=== PATIENT | male | born 1970 | race African-American/Black ===

== ENCOUNTER 2024-09-15 07:30 | Emergency (ER) | payer OTHER ==
[2024-09-15 07:36] VITALS: TEMP 98.2
--- NOTE | 2024-09-15 08:04 | ED ---
Arrhythmia/Palpitations HPI - General Chief Complaint: Arrhythmia/Palpitations Stated Complaint: high BP/lightheaded Time Seen by Provider: 09/15/24 07:32 Source: patient, RN notes reviewed Mode of arrival: ambulatory Limitations: no limitations - History of Present Illness Initial Comments: 53 year old male presents to the ED with chief complaint of light headedness and palpitations. He states that this morning he woke up and felt that his heart was racing and felt light headed. He reports a history of hypertension for which he is not taking any medication, although they are prescribed to him. He states that he is waiting to establish care with PCP. He does report shortness of breath, palpitations, and slight nausea; however, he denies chest pain, syncope, back pain, and headache. - Related Data Previous Rx's Medication Instructions Recorded Losartan [Cozaar] 50 mg PO DAILY #30 tab 09/15/24 Allergies Allergy/AdvReac Type Severity Reaction Status Date / Time No Known Allergies Allergy Verified 09/15/24 07:31 Review of Systems ROS Statement: Those systems with pertinent positive or pertinent negative responses have been documented in the HPI. ROS Other: All systems not noted in ROS Statement are negative. Past Medical History Past Medical History: Hypertension History of Any Multi-Drug Resistant Organisms: None Reported Past Surgical History: No Surgical Hx Reported Past Psychological History: No Psychological Hx Reported Smoking Status: Never smoker Past Alcohol Use History: None Reported Past Drug Use History: None Reported General Exam Limitations: no limitations General appearance: alert, in no apparent distress Head exam: Present: atraumatic, normocephalic, normal inspection Eye exam: Present: normal appearance, PERRL, EOMI. Absent: scleral icterus, conjunctival injection, periorbital swelling ENT exam: Present: normal exam, mucous membranes moist Neck exam: Present: normal inspection. Absent: tenderness, meningismus, lymphadenopathy Respiratory exam: Present: normal lung sounds bilaterally. Absent: respiratory distress, wheezes, rales, rhonchi, stridor Cardiovascular Exam: Present: regular rate, normal rhythm, diastolic murmur. Absent: systolic murmur, rubs, gallop, clicks GI/Abdominal exam: Present: soft, normal bowel sounds. Absent: distended, tenderness, guarding, rebound, rigid Extremities exam: Present: normal inspection, full ROM, normal capillary refill. Absent: tenderness, pedal edema, joint swelling, calf tenderness Back exam: Present: normal inspection Neurological exam: Present: alert, oriented X3, CN II-XII intact Psychiatric exam: Present: normal affect, normal mood Skin exam: Present: warm, dry, intact, normal color. Absent: rash Course Vital Signs 09/15/24 09/15/24 09/15/24 07:32 08:40 09:00 Temperature 98.2 F Pulse Rate 91 85 82 Respiratory 20 18 18 Rate Blood Pressure 216/136 186/124 187/126 O2 Sat by Pulse 98 98 99 Oximetry 09/15/24 09/15/24 09/15/24 09:14 09:29 09:49 Temperature Pulse Rate 94 96 92 Respiratory 18 18 18 Rate Blood Pressure 175/112 173/113 169/104 O2 Sat by Pulse 99 97 97 Oximetry 09/15/24 09/15/24 10:12 10:57 Temperature Pulse Rate 95 96 Respiratory 18 20 Rate Blood Pressure 145/80 158/84 O2 Sat by Pulse 96 99 Oximetry EKG Findings - EKG Comments: EKG Findings:: EKG performed at 7: 54 sinus rhythm rate of 88 ND 158 QRS 102 QT/QTc 350/[address] elevation in V1 V2 no reciprocal changes, Q wave noted in 2 3 - EKG Results: EKG: interpreted by DWAYNE Medical Decision Making - Medical Decision Making Was pt. sent in by a medical professional or institution ([facility], LATHE TENDER, urgent care, hospital, or senior living...) When possible be specific @ -No Did you speak to anyone other than the patient for history (EMS, parent, family, police, friend...)? What history was obtained from this source @ -No Did you review nursing and triage notes (agree or disagree)? Why? @ -I reviewed and agree with nursing and triage notes Were old charts reviewed (outside hosp., previous admission, EMS record, old EKG, old radiological studies, urgent care reports/EKG's, senior living records)? Report findings @ -No old charts were reviewed Differential Diagnosis (chest pain, altered mental status, abdominal pain women, abdominal pain men, vaginal bleeding, weakness, fever, dyspnea, syncope, headache, dizziness, GI bleed, back pain, seizure, CVA, palpatations, mental health, musculoskeletal)? @ -Differential Palpitations Ventricular arrhythmias, atrial arrhythmias, myocardial infarction, anemia, thyrotoxicosis, electrolyte imbalance, hypokalemia, pulmonary embolism, pulmonary disease, drugs, alcohol, anxiety, stress.... This is not meant to be an all-inclusive list. EKG interpreted by me (3pts min.). @ -As above X-rays interpreted by me (1pt min.). @ -Chest x-ray shows no acute cardiopulmonary process CT interpreted by me (1pt min.). @ -None done U/S interpreted by me (1pt. min.). @ -None done What testing was considered but not performed or refused? (CT, X-rays, U/S, labs)? Why? @ -None What meds were considered but not given or refused? Why? @ -None Did you discuss the management of the patient with other professionals (professionals i.e. , PA, LATHE TENDER, lab, RT, psych nurse, child welfare social worker, personal development educator, teacher, chief human resources officer, telephonic case manager)? Give summary @ -No Was smoking cessation discussed for >3mins.? @ -No Was critical care preformed (if so, how long)? @ -No Were there social determinants of health that impacted care today? How? (Homelessness, low income, unemployed, alcoholism, drug addiction, transportation, low edu. Level, literacy, decrease access to med. care, alf, rehab)? @ -No Was there de-escalation of care discussed even if they declined (Discuss DNR or withdrawal of care, Hospice)? DNR status @ -No What co-morbidities impacted this encounter? (DM, HTN, Smoking, COPD, CAD, Cancer, CVA, ARF, Chemo, Hep., AIDS, mental health diagnosis, sleep apnea, morbid obesity)? @ -Hypertension Was patient admitted / discharged? Hospital course, mention meds given and route, prescriptions, significant lab abnormalities, going to OR and other pertinent info. @ -Charge patient's blood pressure has improved. Patient was written his losartan that he was on in the past. Patient was given multiple primary care physicians to attempt follow-up and return transfer discussed. Patient is currently asymptomatic Undiagnosed new problem with uncertain prognosis? @ -No Drug Therapy requiring intensive monitoring for toxicity (Heparin, Nitro, I nsulin, Cardizem)? @ -No Were any procedures done? @ -No Diagnosis/symptom? @ -Hypertension Acute, or Chronic, or Acute on Chronic? @ -Acute Uncomplicated (without systemic symptoms) or Complicated (systemic symptoms)? @ -Uncomplicated Side effects of treatment? @ -No Exacerbation, Progression, or Severe Exacerbation? @ -No Poses a threat to life or bodily function? How? (Chest pain, [place], [place], pneumonia, PE, COPD, DKA, ARF, appy, cholecystitis, CVA, Diverticulitis, Homicidal, Suicidal, threat to staff... and all critical care pts) @ -No - Lab Data Result diagrams: 09/15/24 08:03 09/15/24 08:03 Lab Results 09/15/24 09/15/24 09/15/24 Range/Units 08:03 08:03 08:03 WBC 9.3 (3.8-10.6) k/uL RBC 5.34 (4.30-5.90) m/uL Hgb 15.0 (13.0-17.5) gm/dL Hct 46.4 (39.0-53.0) % MCV 86.8 (80.0-100.0) fL MCH 28.1 (25.0-35.0) pg MCHC 32.4 (31.0-37.0) g/dL RDW 13.2 (11.5-15.5) % Plt Count 279 (150-450) k/uL MPV 7.7 Neutrophils % 75 % Lymphocytes % 17 % Monocytes % 6 % Eosinophils % 1 % Basophils % 0 % Neutrophils # 6.9 (1.3-7.7) k/uL Lymphocytes # 1.6 (1.0-4.8) k/uL Monocytes # 0.5 (0-1.0) k/uL Eosinophils # 0.1 (0-0.7) k/uL Basophils # 0.0 (0-0.2) k/uL PT 10.2 (10.0-12.5) sec INR 0.9 (<1.2) APTT 24.7 (22.0-30.0) sec D-Dimer 0.22 (<0.60) mg/L FEU Sodium 137 (137-145) mmol/L Potassium 4.1 (3.5-5.1) mmol/L Chloride 110 H (98-107) mmol/L Carbon Dioxide 21 L (22-30) mmol/L Anion Gap 6 mmol/L BUN 17 (9-20) mg/dL Creatinine 1.30 H (0.66-1.25) mg/dL Est GFR (CKD-EPI)AfAm 73 (>60 ml/min/1.73 sqM) Est GFR (CKD-EPI)NonAf 63 (>60 ml/min/1.73 sqM) Glucose 116 H (74-99) mg/dL Calcium 9.3 (8.4-10.2) mg/dL Magnesium 1.9 (1.6-2.3) mg/dL Total Bilirubin 0.8 (0.2-1.3) mg/dL AST 47 (17-59) U/L ALT 43 (4-49) U/L Alkaline Phosphatase 96 (38-126) U/L Troponin I (0.000-0.034) ng/mL Total Protein 8.0 (6.3-8.2) g/dL Albumin 4.4 (3.5-5.0) g/dL 09/15/24 Range/Units 08:03 WBC (3.8-10.6) k/uL RBC (4.30-5.90) m/uL Hgb (13.0-17.5) gm/dL Hct (39.0-53.0) % MCV (80.0-100.0) fL MCH (25.0-35.0) pg MCHC (31.0-37.0) g/dL RDW (11.5-15.5) % Plt Count (150-450) k/uL MPV Neutrophils % % Lymphocytes % % Monocytes % % Eosinophils % % Basophils % % Neutrophils # (1.3-7.7) k/uL Lymphocytes # (1.0-4.8) k/uL Monocytes # (0-1.0) k/uL Eosinophils # (0-0.7) k/uL Basophils # (0-0.2) k/uL PT (10.0-12.5) sec INR (<1.2) APTT (22.0-30.0) sec D-Dimer (<0.60) mg/L FEU Sodium (137-145) mmol/L Potassium (3.5-5.1) mmol/L Chloride (98-107) mmol/L Carbon Dioxide (22-30) mmol/L Anion Gap mmol/L BUN (9-20) mg/dL Creatinine (0.66-1.25) mg/dL Est GFR (CKD-EPI)AfAm (>60 ml/min/1.73 sqM) Est GFR (CKD-EPI)NonAf (>60 ml/min/1.73 sqM) Glucose (74-99) mg/dL Calcium (8.4-10.2) mg/dL Magnesium (1.6-2.3) mg/dL Total Bilirubin (0.2-1.3) mg/dL AST (17-59) U/L ALT (4-49) U/L Alkaline Phosphatase (38-126) U/L Troponin I <0.012 (0.000-0.034) ng/mL Total Protein (6.3-8.2) g/dL Albumin (3.5-5.0) g/dL Disposition Clinical Impression: Hypertension Disposition: HOME SELF-CARE Condition: Stable Instructions (If sedation given, give patient instructions): Hypertension (ED) Additional Instructions: Please return to the Emergency Department if symptoms worsen or any other concerns. Prescriptions: Losartan [Cozaar] 50 mg PO DAILY #30 tab Is patient prescribed a controlled substance at d/c from ED?: No Referrals: [facility] [NON-STAFF] - 1-2 days [facility] [NON-STAFF] - 1-2 days None,Stated [Primary Care Provider] - 1-2 days Forms: Area PCPs
[2024-09-15] MEDS: LABETALOL 5 MG/ML VIAL MDV IVP STA (08:13)
[2024-09-15 08:18] LABS: Basophils % (A) 0 %; Eosinophils # (A) 0.1 k/uL (0-0.7); Eosinophils % (A) 1 %; HCT 46.4 % (39.0-53.0); Lymphocytes # (A) 1.6 k/uL (1.0-4.8); Lymphocytes % (A) 17 %; MCH 28.1 pg (25.0-35.0); MCHC 32.4 g/dL (31.0-37.0); MCV 86.8 fL (80.0-100.0); Mean Platelet Volume 7.7; Monocytes # (A) 0.5 k/uL (0-1.0); Monocytes % (A) 6 %; Neutrophils # (A) 6.9 k/uL (1.3-7.7); Neutrophils % (A) 75 %; Platelet Count 279 k/uL (150-450); RBC 5.34 m/uL (4.30-5.90); RDW 13.2 % (11.5-15.5); WBC 9.3 k/uL (3.8-10.6)
[2024-09-15 08:22] LABS: INR 0.9 (<1.2); Partial Thromboplastin Time 24.7 sec (22.0-30.0); Prothrombin Time 10.2 sec (10.0-12.5)
[2024-09-15 08:24] LABS: ALT 43 U/L (4-49); African American GFR (CKD) 73 (>60 ml/min/1.73 sqM); Albumin 4.4 g/dL (3.5-5.0); Anion Gap 6 mmol/L; Blood Urea Nitrogen 17 mg/dL (9-20); Calcium 9.3 mg/dL (8.4-10.2); Carbon Dioxide 21 mmol/L (22-30); Chloride 110 mmol/L (98-107); Glucose 116 mg/dL (74-99); Non-African American GFR(CKD) 63 (>60 ml/min/1.73 sqM); Sodium 137 mmol/L (137-145); Total Bilirubin 0.8 mg/dL (0.2-1.3)
[2024-09-15 08:31] LABS: AST 47 U/L (17-59); Alkaline Phosphatase 96 U/L (38-126); Magnesium 1.9 mg/dL (1.6-2.3); Potassium 4.1 mmol/L (3.5-5.1)
--- NOTE | 2024-09-15 08:45 | XR ---
EXAMINATION TYPE: XR chest 2V DATE OF EXAM: 09/15/2024 8:31 AM COMPARISON: None. CLINICAL INDICATION: Male, 53 years old with history of dysrhythmia, , TECHNIQUE: PA and lateral views FINDINGS: The cardiomediastinal silhouette, aorta, and pulmonary vasculature are within normal limits. Lungs an d pleural spaces are clear. IMPRESSION: No acute cardiopulmonary process. [facility], , 09/15/2024 8:43 AM
[2024-09-15] MEDS: hydrALAZINE HCL 20 MG/ML 1 ML VIAL IVP STA ×3 (09:02→09:32)
[2024-09-15 11:00] VITALS: BP 158/84; PULSE 96; RESP 20
== END 2024-09-15 11:10 | disposition home or self-care (01) ==
LOC: EC 07:30
DX: I10 Essential (primary) hypertension (principal)
CPT/HCPCS: 36415; 71046; 80053; 83735; 84484; 85025; 85379; 85610; 85730; 93005; 96374; 96375; 96376; 99285

== ENCOUNTER 2025-02-08 17:06 | Observation (INO) | payer OTHER ==
--- NOTE | 2025-02-08 17:23 | ED ---
Recheck HPI - General Chief Complaint: Recheck/Abnormal Lab/Rx Stated Complaint: hypertension Time Seen by Provider: 02/08/25 17:23 Source: patient, EMS Mode of arrival: EMS - History of Present Illness Initial Comments: 54-year-old male presented the ER via EMS for evaluation of hypertension. Patient states he is typically prescribed losartan 50 mg daily but has been out of his medication for the past 2 almost 3 weeks. He does not currently have a primary care physician as he " cannot afford to miss work". He reports throughout the day today he has felt "off" and mildly dizzy. He states he typically feels like this when his blood pressure is elevated. Patient states this was intermittent throughout the day and when he got off work he decided to come to the emergency department for evaluation as he felt his blood pressure was elevated. He states while driving to the hospital he started to have blurry vision which prompted him to sample puller on the side of the road and called EMS as he did not want something bad to happen while driving. He denies any current dizziness, lightheadedness, chest pain, shortness of breath, peripheral edema or other complaints. No other past medical history - Related Data Home Medications Medication Instructions Recorded Confirmed Aspirin EC [Ecotrin Low Dose] 81 mg PO DAILY 02/08/25 02/08/25 Allergies Allergy/AdvReac Type Severity Reaction Status Date / Time No Known Allergies Allergy Verified 02/08/25 17:12 Review of Systems ROS Statement: Those systems with pertinent positive or pertinent negative responses have been documented in the HPI. ROS Other: All systems not noted in ROS Statement are negative. Past Medical History Past Medical History: Hypertension History of Any Multi-Drug Resistant Organisms: None Reported Past Surgical History: No Surgical Hx Reported Past Psychological History: No Psychological Hx Reported Smoking Status: Never smoker Past Alcohol Use History: None Reported Past Drug Use History: None Reported General Exam Limitations: no limitations General appearance: alert, in no apparent distress Respiratory exam: Present: normal lung sounds bilaterally. Absent: respiratory distress, wheezes, rales, rhonchi, stridor Cardiovascular Exam: Present: regular rate, normal rhythm, normal heart sounds. Absent: systolic murmur, diastolic murmur, rubs, gallop, clicks Extremities exam: Present: normal inspection, full ROM, normal capillary refill. Absent: tenderness, pedal edema, joint swelling, calf tenderness Neurological exam: Present: alert, oriented X3, CN II-XII intact Skin exam: Present: warm, dry, intact, normal color. Absent: rash Course Vital Signs 02/08/25 02/08/25 02/08/25 17:10 19:35 20:38 Temperature 98.2 F Pulse Rate 96 85 91 Respiratory 20 20 18 Rate Blood Pressure 186/111 201/122 176/113 O2 Sat by Pulse 99 100 99 Oximetry 02/08/25 22:56 Temperature Pulse Rate 90 Respiratory 17 Rate Blood Pressure 155/92 O2 Sat by Pulse 98 Oximetry - Reevaluation(s) Reevaluation #1: 02/09/25 00:48 Case discussed with [facility] physician, Dr. Chaparro, for admission. Medical Decision Making - Medical Decision Making Was pt. sent in by a medical professional or institution (, PA, GANG HEMSTITCHING MACHINE OPERATOR, urgent care, hospital, or residential...) When possible be specific @ -No Did you speak to anyone other than the patient for history (EMS, parent, family, police, friend...)? What history was obtained from this source @ -No Did you review nursing and triage notes (agree or disagree)? Why? @ -I reviewed and agree with nursing and triage notes Were old charts reviewed (outside hosp., previous admission, EMS record, old EKG, old radiological studies, urgent care reports/EKG's, residential records)? Report findings @ -Yes, I reviewed ER visit from [id number]. Patient seen here for evaluation of hypertension patient discharged home with a prescription of losartan. Differential Diagnosis (chest pain, altered mental status, abdominal pain women, abdominal pain men, vaginal bleeding, weakness, fever, dyspnea, syncope, headache, dizziness, GI bleed, back pain, seizure, CVA, palpatations, mental health, musculoskeletal)? @ -Hypertension, hypertensive urgency, hypertensive emergency, [place], CKD... This list is not meant to be all-inclusive EKG interpreted by me (3pts min.). @ -As above X-rays interpreted by me (1pt min.). @ -CXR interpreted remain negative for acute cardiopulmonary process. CT interpreted by me (1pt min.). @ -None done U/S interpreted by me (1pt. min.). @ -None done What testing was considered but not performed or refused? (CT, X-rays, U/S, labs)? Why? @ -None What meds were considered but not given or refused? Why? @ -None Did you discuss the management of the patient with other professionals (professionals i.e. , PA, GANG HEMSTITCHING MACHINE OPERATOR, lab, RT, psych nurse, medical social consultant, neonatal specialist, teacher, assurance officer, behavioral health case manager)? Give summary @ -Yes, case discussed with [facility] physician, Dr. Chaparro, for admission. Was smoking cessation discussed for >3mins.? @ -No Was critical care preformed (if so, how long)? @ -No Were there social determinants of health that impacted care today? How? (Homelessness, low income, unemployed, alcoholism, drug addiction, transportation, low edu. Level, literacy, decrease access to med. care, senior care, rehab)? @ -Patient does not have primary care physician Was there de-escalation of care discussed even if they declined (Discuss DNR or withdrawal of care, Hospice)? DNR status @ -No What co-morbidities impacted this encounter? (DM, HTN, Smoking, COPD, CAD, Cancer, CVA, ARF, Chemo, Hep., AIDS, mental health diagnosis, sleep apnea, morbid obesity)? @ -HTN Was patient admitted / discharged? Hospital course, mention meds given and route, prescriptions, significant lab abnormalities, going to OR and other pertinent info. @ -Admitted. 54-year-old male presented to the ER via EMS for evaluation of elevated blood pressure. Patient reports a history of this and has not been on prescribed losartan in approximately 2 to 3 weeks as he does not have a primary care physician.Upon my evaluation, patient is hypertensive 186/111. Vital signs otherwise within acceptable limits. Patient denying any current complaints. Cardiac workup will be obtained, patient is agreeable. Troponin undetectable. There is a leukocytosis of 12.8 with a left shift. EKG showing a sinus rhythm no acute evidence of infarct or ischemia. Patient given IV labetalol and hydralazine and remained hypertensive at 176/113. Given patient does not have primary care physician established and is unable to follow-up closely while remaining hypertensive after IV medications, admission was considered and discussed with [facility] physician, Dr. Chaparro, for further evaluation of uncontrolled hypertension. Upon reevaluation, patient resting comfortably on stretcher no signs of acute distress. Results discussed with patient, all questions answered. Patient is agreeable for admission. Patient admitted in stable condition for further evaluation and treatment. Case discussed with ED attending, Dr. Macias. Undiagnosed new problem with uncertain prognosis? @ -No Drug Therapy requiring intensive monitoring for toxicity (Heparin, Nitro, Insulin, Cardizem)? @ -No Were any procedures done? @ -No Diagnosis/symptom? @ -Uncontrolled hypertension Acute, or Chronic, or Acute on Chronic? @ -Acute Uncomplicated (without systemic symptoms) or Complicated (systemic symptoms)? @ -Complicated Side effects of treatment? @ -No Exacerbation, Progression, or Severe Exacerbation? @ -No Poses a threat to life or bodily function? How? (Chest pain, [place], [place], pneumonia, PE, COPD, DKA, ARF, appy, cholecystitis, CVA, Diverticulitis, Homicidal, Suicidal, threat to staff... and all critical care pts) @ -Possibly - Lab Data Result diagrams: 02/08/25 19:33 02/08/25 17:56 Lab Results 02/08/25 02/08/25 02/08/25 Range/Units 17:56 17:56 17:56 WBC (3.8-10.6) k/uL RBC (4.30-5.90) m/uL Hgb (13.0-17.5) gm/dL Hct (39.0-53.0) % MCV (80.0-100.0) fL MCH (25.0-35.0) pg MCHC (31.0-37.0) g/dL RDW (11.5-15.5) % Plt Count (150-450) k/uL MPV Neutrophils % % Lymphocytes % % Monocytes % % Eosinophils % % Basophils % % Neutrophils # (1.3-7.7) k/uL Lymphocytes # (1.0-4.8) k/uL Monocytes # (0-1.0) k/uL Eosinophils # (0-0.7) k/uL Basophils # (0-0.2) k/uL PT 10.8 (10.0-12.5) sec INR 1.0 (<1.2) APTT 22.7 (22.0-30.0) sec Sodium 138 (137-145) mmol/L Potassium 3.9 (3.5-5.1) mmol/L Chloride 106 (98-107) mmol/L Carbon Dioxide 25 (22-30) mmol/L Anion Gap 7 mmol/L BUN 12 (9-20) mg/dL Creatinine 1.34 H (0.66-1.25) mg/dL Est GFR (CKD-EPI)AfAm 70 (>60 ml/min/1.73 sqM) Est GFR (CKD-EPI)NonAf 60 (>60 ml/min/1.73 sqM) Glucose 106 H (74-99) mg/dL Calcium 8.9 (8.4-10.2) mg/dL Magnesium 2.0 (1.6-2.3) mg/dL Total Bilirubin 0.8 (0.2-1.3) mg/dL AST 28 (17-59) U/L ALT 30 (4-49) U/L Alkaline Phosphatase 91 (38-126) U/L Troponin I <0.012 (0.000-0.034) ng/mL Total Protein 7.4 (6.3-8.2) g/dL Albumin 4.0 (3.5-5.0) g/dL 02/08/25 Range/Units 19:33 WBC 12.8 H (3.8-10.6) k/uL RBC 5.35 (4.30-5.90) m/uL Hgb 15.0 (13.0-17.5) gm/dL Hct 46.1 (39.0-53.0) % MCV 86.3 (80.0-100.0) fL MCH 28.0 (25.0-35.0) pg MCHC 32.5 (31.0-37.0) g/dL RDW 13.3 (11.5-15.5) % Plt Count 287 (150-450) k/uL MPV 7.9 Neutrophils % 83 % Lymphocytes % 12 % Monocytes % 3 % Eosinophils % 1 % Basophils % 0 % Neutrophils # 10.6 H (1.3-7.7) k/uL Lymphocytes # 1.6 (1.0-4.8) k/uL Monocytes # 0.4 (0-1.0) k/uL Eosinophils # 0.2 (0-0.7) k/uL Basophils # 0.0 (0-0.2) k/uL PT (10.0-12.5) sec INR (<1.2) APTT (22.0-30.0) sec Sodium (137-145) mmol/L Potassium (3.5-5.1) mmol/L Chloride (98-107) mmol/L Carbon Dioxide (22-30) mmol/L Anion Gap mmol/L BUN (9-20) mg/dL Creatinine (0.66-1.25) mg/dL Est GFR (CKD-EPI)AfAm (>60 ml/min/1.73 sqM) Est GFR (CKD-EPI)NonAf (>60 ml/min/1.73 sqM) Glucose (74-99) mg/dL Calcium (8.4-10.2) mg/dL Magnesium (1.6-2.3) mg/dL Total Bilirubin (0.2-1.3) mg/dL AST (17-59) U/L ALT (4-49) U/L Alkaline Phosphatase (38-126) U/L Troponin I (0.000-0.034) ng/mL Total Protein (6.3-8.2) g/dL Albumin (3.5-5.0) g/dL - EKG Data -: EKG Interpreted by Me EKG Comments: EKG taken at 18: 53 showing a sinus rhythm. No ST segment elevations or depressions. No T wave inversions. Ventricular rate 77, WI interval 140, QRS duration 97, QT/QTc 359/390. - Radiology Data Radiology results: report reviewed, image reviewed Disposition Clinical Impression: Uncontrolled hypertension Disposition: ADMITTED IP TO THIS [facility] Condition: Stable Time of Disposition: 00:44
[2025-02-08] MEDS: LABETALOL 5 MG/ML VIAL MDV IVP STA ×2 (17:55→18:16)
[2025-02-08 18:11] LABS: Partial Thromboplastin Time 22.7 sec (22.0-30.0); Prothrombin Time 10.8 sec (10.0-12.5)
[2025-02-08 18:14] LABS: ALT 30 U/L (4-49); AST 28 U/L (17-59); African American GFR (CKD) 70 (>60 ml/min/1.73 sqM); Alkaline Phosphatase 91 U/L (38-126); Anion Gap 7 mmol/L; Blood Urea Nitrogen 12 mg/dL (9-20); Calcium 8.9 mg/dL (8.4-10.2); Carbon Dioxide 25 mmol/L (22-30); Chloride 106 mmol/L (98-107); Glucose 106 mg/dL (74-99); Non-African American GFR(CKD) 60 (>60 ml/min/1.73 sqM); Potassium 3.9 mmol/L (3.5-5.1); Sodium 138 mmol/L (137-145); Total Bilirubin 0.8 mg/dL (0.2-1.3); Total Protein 7.4 g/dL (6.3-8.2)
--- NOTE | 2025-02-08 18:21 | XR ---
EXAMINATION TYPE: XR chest 2V DATE OF EXAM: 02/08/2025 CLINICAL INDICATION: Male, 54 years old with history of Chest Pain, TECHNIQUE: Frontal and lateral views of the chest are obtained. COMPARISON: Chest x-ray September 15, 2024 FINDINGS: There is no focal air space opacity, pleural effusion, or pneumothorax seen. The cardiac silhouette size is stable and within normal limits. The osseous structures are intact. IMPRESSION: No acute process. [facility], , 02/08/2025 6:19 PM
[2025-02-08 19:53] LABS: Basophils % (A) 0 %; Eosinophils # (A) 0.2 k/uL (0-0.7); Eosinophils % (A) 1 %; HCT 46.1 % (39.0-53.0); Lymphocytes # (A) 1.6 k/uL (1.0-4.8); Lymphocytes % (A) 12 %; MCHC 32.5 g/dL (31.0-37.0); MCV 86.3 fL (80.0-100.0); Mean Platelet Volume 7.9; Monocytes # (A) 0.4 k/uL (0-1.0); Monocytes % (A) 3 %; Neutrophils # (A) 10.6 k/uL (1.3-7.7); Neutrophils % (A) 83 %; Platelet Count 287 k/uL (150-450); RBC 5.35 m/uL (4.30-5.90); RDW 13.3 % (11.5-15.5); WBC 12.8 k/uL (3.8-10.6)
[2025-02-08] MEDS: hydrALAZINE HCL 20 MG/ML 1 ML VIAL IVP STA (20:07)
[2025-02-08] MEDS ORDERED: NALOXONE 0.4 MG/ML 1 ML VIAL IV PRN (23:18)
--- NOTE | 2025-02-09 02:42 | P.HPIM ---
History of Present Illness H&P Date: 02/09/25 Patient is a 54-year-old male with a PMH of hypertension who presents to the emergency room for elevated blood pressures. Patient reports that he was previously seeing a PCP and was prescribed losartan 50 mg p.o. daily but had ran out of his medications and thereby had not taken them for several weeks. Patient notes that he has been having trouble finding a PCP that would accept his insurance. He reports feeling "somewhat off" at home throughout the day today and then started feeling dizzy which are his usual symptoms of high blood pressure. At time of interview, he reports feeling at his baseline and had no additional complaints. Denied experiencing headaches, chest discomfort, shortne ss of breath, fever, chills, cough, nausea, vomiting, abdominal pain, diarrhea. In the emergency room, chest x-ray was unremarkable with EKG showing sinus rhythm at [address]/T wave changes noted as reviewed by me. Laboratory evaluation did reveal WBC count of 12.8 with BUN 12 and creatinine 1.34 with glucose 106 and troponin less than 0.012. Blood pressure upon arrival in the emergency room was 186/111 and subsequently 201/122. ED documentation reviewed and case discussed with ED provider. Review of systems: Pertinent positives and negatives as discussed in HPI, a complete review of systems was performed and all other systems are negative. Physical examination: Vital signs reviewed General: non toxic, no distress, appears at stated age, obese Derm: no unusual rashes/lesions, warm Head: atraumatic, normocephalic, symmetric Eyes: EOMI, no lid lag, anicteric sclera, pupils equal round reactive to light ENT: Nose and ears atraumatic Neck: No cervical lymphadenopathy, trachea midline, supple Mouth: no lip lesion, mucus membranes moist Cardiovascular: S1S2 reg, no murmur, positive dorsalis pedis pulse bilateral, no edema Lungs: CTA bilateral, no rhonchi, no rales, no accessory muscle use Abdominal: soft, nontender to palpation, no guarding Ext: muscle strength 5 out of 5 in all 4 extremities grossly, no gross muscle atrophy, no contractures, Neuro: CN II-XI grossly intact, no gross focal neuro deficits Psych: Alert, oriented, appropriate affect Assessment: Accelerated hypertension Leukocytosis Elevated creatinine, acute versus chronic kidney injury Imaging: In the emergency room, chest x-ray was unremarkable with EKG showing sinus rhythm at [address]/T wave changes noted as reviewed by me. Data Review: Laboratory evaluation did reveal WBC count of 12.8 with BUN 12 and creatinine 1.34 with glucose 106 and troponin less than 0.012. Blood pressure upon arrival in the emergency room was 186/111 and subsequently 201/122. Plan: Initiate hydrochlorothiazide 50 mg p.o. daily and Norvasc 10 mg p.o. daily Continue with cardiac monitoring DVT prophylaxis: Lovenox subcu The patient is admitted with an anticipated [] than 2 midnight stay for evaluation of [] CODE STATUS: Full Code Discussed with: Patient Anticipated discharge place: Home Past Medical History Past Medical History: Hypertension History of Any Multi-Drug Resistant Organisms: None Reported Past Surgical History: No Surgical Hx Reported Past Psychological History: No Psychological Hx Reported Smoking Status: Never smoker Past Alcohol Use History: None Reported Past Drug Use History: None Reported Medications and Allergies Home Medications Medication Instructions Recorded Confirmed Type Aspirin EC [Ecotrin Low Dose] 81 mg PO DAILY 02/08/25 02/08/25 History Allergies Allergy/AdvReac Type Severity Reaction Status Date / Time No Known Allergies Allergy Verified 02/08/25 17:12 Physical Exam Vitals: Vital Signs Temp Pulse Resp BP Pulse Ox 02/09/25 01:03 104 H 16 151/96 99 02/08/25 22:56 90 17 155/92 98 02/08/25 20:38 91 18 176/113 99 02/08/25 19:35 85 20 201/122 100 02/08/25 17:10 98.2 F 96 20 186/111 99 Intake and Output 02/08/25 02/08/25 02/09/25 14:59 22:59 06:59 Other: Weight 106.594 kg Results CBC & Chem 7: 02/08/25 19:33 02/08/25 17:56 Labs: Abnormal Lab Results - Last 24 Hours (Table) 02/08/25 02/08/25 Range/Units 17:56 19:33 WBC 12.8 H (3.8-10.6) k/uL Neutrophils # 10.6 H (1.3-7.7) k/uL Creatinine 1.34 H (0.66-1.25) mg/dL Glucose 106 H (74-99) mg/dL
[2025-02-09] MEDS: amLODIPine 10 MG TAB PO STA (02:56)
[2025-02-09] MEDS: amLODIPine 10 MG TAB PO SCH (06:49)
[2025-02-09] MEDS: ASPIRIN 81 MG PO SCH (08:45)
[2025-02-09] MEDS: LOSARTAN 25 MG TAB PO SCH (08:45)
[2025-02-09] MEDS: ENOXAPARIN 40 MG/0.4 ML SYRINGE SQ SCH (08:46)
[2025-02-09] MEDS ORDERED: hydrALAZINE HCL 20 MG/ML 1 ML VIAL IM PRN (12:33)
--- NOTE | 2025-02-09 12:45 | P.PN ---
Subjective Progress Note Date: 02/09/25 Hospital Course: A 54-year-old male with PMH of hypertension who presented to the ER with allie taylor blood pressure. atient reports that he was previously seeing a PCP and was prescribed losartan 5 0 mg p.o. daily but had ran out of his medications and thereby had not taken them for several weeks. Patient notes that he has been having trouble finding a PCP that would accept his insurance. He reports feeling "somewhat off" at home throughout the day today and then started feeling dizzy which are his usual symptoms of high blood pressure. At time of interview, he reports feeling at his baseline and had no additional complaints. Denied experiencing headaches, chest discomfort, shortness of breath, fever, chills, cough, nausea, vomiting, abdominal pain, diarrhea. In the emergency room, chest x-ray was unremarkable with EKG showing sinus rhythm at [address]/T wave changes noted as reviewed by me. Laboratory evaluation did reveal WBC count of 12.8 with BUN 12 and creatinine 1.34 with glucose 106 and troponin less than 0.012. Blood pressure upon arrival in the emergency room was 186/111 and subsequently 201/122. Patient was initially started on hydrochlorothiazide 50 mg p.o. daily and amlodipine 10 mg p.o. daily, his blood pressure did not respond, amlodipine was switched to Procardia 60 mg daily, losartan 25 daily added. Metabolic panel ordered Extensively discussed lifestyle modifications, his physical activity. Recommended at least 8000 steps a day, exercises 3 or 4 times a week, DASH diet. Patient demonstrated understanding and interested in getting his blood pressure under control with all the above measures Pertinent Imaging: No new imaging Subjective: Feels better today, still has some headache Pertinent positives and negatives as discussed above, a complete review of systems was performed and all other systems are negative. Vitals Signs Reviewed. General: [nontoxic], [no distress], [appears at stated age] Derm: [warm], [dry] Head: [atraumatic], [normocephalic], [symmetric] Eyes: [EOMI], [no lid lag], [anicteric sclera] Mouth: [no lip lesion], [mucus membranes moist] Cardiovascular: [S1S2 reg], [no murmur] Lungs: [CTA bilateral], [no rhonchi, no rales] , [no accessory muscle use] Abdominal: [soft], [ nontender to palpation], [no guarding], [no appreciable organomegaly] Ext: [no gross muscle atrophy], [no edema], [no contractures] Neuro: [ CN II-XI grossly intact], [no focal neuro deficits] Psych: [Alert], [oriented], [appropriate affect] Data Reviewed Today: No new blood work, ordered TSH, A1c lipid panel, UA to evaluate for proteinuria Assessment and Plan: Hypertensive urgency Uncontrolled hypertension Obesity BMI 31 Elevated creatinine, likely CKD stage II versus [place] Elevated blood glucose -on hydrochlorothiazide 50 mg p.o. daily, amlodipine was switched to Procardia 60 mg daily, losartan 25 daily added. -Metabolic panel ordered -Urine protein -repeat BMP in AM DVT ppx: Lovenox Code status: Full Anticipated discharge place: Home Anticipated discharge time: 02/10 Objective - Vital Signs Vital signs: Vital Signs Temp 97.9 F 02/09/25 07:09 Pulse 68 02/09/25 10:47 Resp 16 02/09/25 08:45 BP 182/107 02/09/25 10:47 Pulse Ox 100 02/09/25 07:09 FiO2 Intake & Output 02/08/25 02/09/25 02/09/25 18:59 06:59 18:59 Weight 106.594 kg 106.594 kg Other: Voiding Method Toilet # Voids 1 - Labs CBC & Chem 7: 02/08/25 19:33 02/08/25 17:56 Labs: Abnormal Lab Results - Last 24 Hours (Table) 02/08/25 02/08/25 Range/Units 17:56 19:33 WBC 12.8 H (3.8-10.6) k/uL Neutrophils # 10.6 H (1.3-7.7) k/uL Creatinine 1.34 H (0.66-1.25) mg/dL Glucose 106 H (74-99) mg/dL
[2025-02-09 14:05] LABS: Creatinine,Urine Random 198.8 mg/dL; Protein/Creatinine Ratio,Urine 0.045
[2025-02-09 19:10] LABS: Chol/HDL Ratio 4.15 Ratio; LDL Cholesterol,Calculated 116.2 mg/dL (0.0-131.0)
[2025-02-10 07:02] VITALS: BP 146/82; PULSE 86; RESP 16; TEMP 98
[2025-02-10 08:21] LABS: BUN/Creat Ratio 9.27 Ratio (12.00-20.00); Blood Urea Nitrogen 13.9 mg/dL (9.0-27.0); Calcium 9.3 mg/dL (8.7-10.3); Carbon Dioxide 22.9 mmol/L (21.6-31.8); Chloride 103 mmol/L (96-109); Glucose 104 mg/dL (70-110); Potassium 4.2 mmol/L (3.5-5.5); Sodium 136 mmol/L (135-145)
[2025-02-10] MEDS: NIFEdipine XL 90 MG TAB.ER.24 PO SCH (09:53)
--- NOTE | 2025-02-10 11:47 | P.DS ---
Providers Date of admission: 02/08/25 23:28 Attending physician: Pilo Chaparro MD Primary care physician: Stated None Hospital Course: Discharge Diagnosis: Hypertensive urgency Uncontrolled hypertension Obesity BMI 31 Elevated creatinine, likely CKD stage II versus [place] Prediabetes Dyslipidemia Hospital Course: A 54-year-old male with PMH of hypertension who presented to the ER with elevated blood pressure. atient reports that he was previously seeing a PCP and was prescribed losartan 50 mg p.o. daily but had ran out of his medications and thereby had not taken them for several weeks. Patient notes that he has been having trouble finding a PCP that would accept his insurance. He reports feeling "somewhat off" at home throughout the day today and then started feeling dizzy which are his usual symptoms of high blood pressure. At time of interview, he reports feeling at his baseline and had no additional complaints. Denied experiencing headaches, chest discomfort, shortness of breath, fever, chills, cough, nausea, vomiting, abdominal pain, diarrhea. In the emergency room, chest x-ray was unremarkable with EKG showing sinus rhythm at [address]/T wave changes noted as reviewed by me. Laboratory evaluation did reveal WBC count of 12.8 with BUN 12 and creatinine 1.34 with glucose 106 and troponin less than 0.012. Blood pressure upon arrival in the emergency room was 186/111 and subsequently 201/122. Patient was initially started on hydrochlorothiazide 50 mg p.o. daily and amlodipine 10 mg p.o. daily, his blood pressure did not respond, amlodipine was switched to Procardia 60 mg daily, losartan 25 daily added. Metabolic panel ordered Extensively discussed lifestyle modifications, his physical activity. Recommended at least 8000 steps a day, exercises 3 or 4 times a week, DASH diet. Patient demonstrated understanding and interested in getting his blood pressure under control with all the above measures Discharge medications: Procardia 90 mg daily, losartan 25 daily, hydrochlorothiazide 50 mg daily. His ASCVD is around 12, no statins indicated at this time. Needs to follow-up with primary care physician, work on weight loss as we discussed A1c 5.8, prediabetic, patient was notified on the results, recommended to watch his carbs, weight loss. Patient seen and examined at bedside.[] Vital signs reviewed and stable. General: [nontoxic], [no distress], [appears at stated age] Derm: [warm], [dry] Head: [atraumatic], [normocephalic], [symmetric] Eyes: [EOMI], [no lid lag], [anicteric sclera] Mouth: [no lip lesion], [mucus membranes moist] Cardiovascular: [S1S2 reg], [no murmur] Lungs: [CTA bilateral], [no rhonchi, no rales] , [no accessory muscle use] Abdominal: [soft], [ nontender to palpation], [no guarding], [no appreciable organomegaly] Ext: [no gross muscle atrophy], [no edema], [no contractures] Neuro: [ CN II-XI grossly intact], [no focal neuro deficits] Psych: [Alert], [oriented], [appropriate affect] A total of 38 minutes of time were spent preparing this complex discharge summary. Patient was discharged on 02/10/2025. Patient Condition at Discharge: Stable Plan - Discharge Summary Discharge Rx Participant: Yes New Discharge Prescriptions: New hydroCHLOROthiazide [Hydrodiuril] 50 mg PO DAILY #30 tab Losartan [Cozaar] 25 mg PO DAILY #30 tab NIFEdipine XL [Procardia XL] 90 mg PO DAILY #30 tab Continue Aspirin EC [Ecotrin Low Dose] 81 mg PO DAILY Discharge Medication List Aspirin EC [Ecotrin Low Dose] 81 mg PO DAILY 02/08/25 [History] Losartan [Cozaar] 25 mg PO DAILY #30 tab 02/10/25 [Rx] NIFEdipine XL [Procardia XL] 90 mg PO DAILY #30 tab 02/10/25 [Rx] hydroCHLOROthiazide [Hydrodiuril] 50 mg PO DAILY #30 tab 02/10/25 [Rx] Follow up Appointment(s)/Referral(s): None,Stated [Primary Care Provider] - 1-2 days Patient Instructions/Handouts: Heart Healthy Diet (DC), DASH Eating Plan (DC), Low-Sodium Diet (DC), Prediabetes (GEN) Activity/Diet/Wound Care/Special Instructions: Please, establish care with primary care physician as your high blood pressure needs to be closely monitored by specialist. As we discussed, follow DASH diet, stay physically active with steps call around 8000 day, exercise 3-4 times a week, watch your carbs intake as you now diagnosed with prediabetes. Monitor your blood pressure daily, keep a log of the readings to discussed with your primary care provider. Watch your weight, work on weight loss as you we will see how your blood pressure numbers are going down with weight loss as well as A1c/blood sugars Discharge/Stand Alone Forms: Area PCPs Discharge Disposition: HOME SELF-CARE
== END 2025-02-10 12:49 | disposition home or self-care (01) ==
LOC: EC 17:06 → 6NMEDSUR 23:28 → 4SSUR 02-09 02:21
PROVIDERS: ADMIT Internal Medicine; ATTEND Internal Medicine
DX: I16.0 Hypertensive urgency (principal); I10 Essential (primary) hypertension; D72.829 Elevated white blood cell count, unspecified; R79.89 Other specified abnormal findings of blood chemistry; R73.03 Prediabetes; E78.5 Hyperlipidemia, unspecified; E66.9 Obesity, unspecified; Z68.31 Body mass index [BMI] 31.0-31.9, adult; Z79.82 Long term (current) use of aspirin; Z79.899 Other long term (current) drug therapy
CPT/HCPCS: 96372 ×2; 96374; 96375; 99285; 36415; 94760; 93005; 82570; 80061; 80053; 80048; 84443; 84156; 83735; 84484; 85025; 85610; 85730; 83036; 71046; G0378 ×4; J0360; J1650 ×2; J1920

== ENCOUNTER 2025-02-15 06:56 | Observation (INO) | payer OTHER ==
--- NOTE | 2025-02-15 07:18 | ED ---
Weakness HPI - General Chief complaint: Weakness Stated complaint: Weakness Time Seen by Provider: 02/15/25 07:12 Source: patient, EMS, RN notes reviewed, old records reviewed Mode of arrival: EMS Limitations: no limitations - History of Present Illness Initial comments: This is a 54 male to the ER for evaluation patient unfortunately has multiple medications as of recent multiple new medications for hypertension, patient has been feeling weak and is definitely weak and short of breath today occasional chest pain but nothing significant currently. Patient has again multiple ER visits for uncontrolled hypertension and was told dehydration with 3 ER visits in the last week or so. Patient states his symptoms to start improving he is continue to feel weaker continued to feel more fatigued with shortness of breath and uncontrolled blood pressure MD Complaint: generalized weakness, lack of energy -: days(s) (5) Location: generalized Severity: moderate Severity scale (1-10): 5 Consistency: constant Improves with: none Worsens with: none Context: recent illness, history of similar Associated Symptoms: syncope (near) - Related Data Home Medications Medication Instructions Recorded Confirmed Aspirin EC [Ecotrin Low Dose] 81 mg PO DAILY 02/08/25 02/15/25 Previous Rx's Medication Instructions Recorded Atorvastatin [Lipitor] 40 mg PO HS 30 Days #30 tab 02/16/25 Valsartan [Diovan] 160 mg PO BID 30 Days #60 tab 02/16/25 amLODIPine [Norvasc] 5 mg PO BID 30 Days #60 tab 02/16/25 Allergies Allergy/AdvReac Type Severity Reaction Status Date / Time No Known Allergies Allergy Verified 02/15/25 09:07 Review of Systems ROS Statement: Those systems with pertinent positive or pertinent negative responses have been documented in the HPI. ROS Other: All systems not noted in ROS Statement are negative. Past Medical History Past Medical History: Hypertension History of Any Multi-Drug Resistant Organisms: None Reported Past Surgical History: No Surgical Hx Reported Past Psychological History: No Psychological Hx Reported Smoking Status: Never smoker Past Alcohol Use History: None Reported Past Drug Use History: None Reported General Exam Limitations: no limitations General appearance: alert, in no apparent distress, anxious Head exam: Present: atraumatic, normocephalic, normal inspection Eye exam: Present: normal appearance, PERRL, EOMI. Absent: scleral icterus, conjunctival injection, periorbital swelling ENT exam: Present: normal exam, mucous membranes moist Neck exam: Present: normal inspection. Absent: tenderness, meningismus, lymphadenopathy Respiratory exam: Present: normal lung sounds bilaterally. Absent: respiratory distress, wheezes, rales, rhonchi, stridor Cardiovascular Exam: Present: normal rhythm, tachycardia, normal heart sounds. Absent: systolic murmur, diastolic murmur, rubs, gallop, clicks GI/Abdominal exam: Present: soft, normal bowel sounds. Absent: distended, tenderness, guarding, rebound, rigid Extremities exam: Present: normal inspection, full ROM, normal capillary refill. Absent: tenderness, pedal edema, joint swelling, calf tenderness Back exam: Present: normal inspection Neurological exam: Present: alert, oriented X3, CN II-XII intact Psychiatric exam: Present: normal affect, normal mood Skin exam: Present: warm, dry, intact, normal color. Absent: rash Course Vital Signs 02/15/25 02/15/25 02/15/25 06:59 07:31 10:10 Temperature 97.7 F Pulse Rate 101 H 95 92 Respiratory 18 18 18 Rate Blood Pressure 166/110 159/122 155/96 O2 Sat by Pulse 100 97 97 Oximetry 02/15/25 02/15/25 02/15/25 11:19 12:47 16:00 Temperature 98.0 F Pulse Rate 91 101 H 95 Respiratory 18 18 16 Rate Blood Pressure 152/96 143/98 160/102 O2 Sat by Pulse 98 97 99 Oximetry 02/15/25 18:04 Temperature 98.0 F Pulse Rate 94 Respiratory 18 Rate Blood Pressure 145/99 O2 Sat by Pulse 98 Oximetry - Reevaluation(s) Reevaluation #1: 02/15/25 07:23 Medical records reviewed Prior EKG reviewed relatively unchanged Prior ER visits for uncontrolled hypertension Reevaluation #2: 02/15/25 10:39 Patient symptoms are unchanged here in the ER blood pressure diastolic improved Reevaluation #3: 02/15/25 10:39 Patient informed of results questions answered Reevaluation #4: Was pt. sent in by a medical professional or institution (, PA, HOTEL GUEST SERVICE AGENT, urgent care, hospital, or assisted...) When possible be specific @ -no Did you speak to anyone other than the patient for history (EMS, parent, family, police, friend...)? What history was obtained from this source @ -no Did you review nursing and triage notes (agree or disagree)? Why? @ -agree Are old charts reviewed (outside hosp., previous admission, EMS record, old EKG, old radiological studies, urgent care reports/EKG's, assisted records)? Report findings @ -yes Differential Diagnosis (chest pain, altered mental status, abdominal pain women, abdominal pain men, vaginal bleeding, weakness, fever, dyspnea, syncope, headache, dizziness, GI bleed, back pain, seizure, CVA, palpatations, mental health, musculoskeletal)? @ -prior EKG interpreted by me (3pts min.). @ -yes X-rays interpreted by me (1pt min.). @ -no CT interpreted by me (1pt min.). @ -yes negative for acute disease U/S interpreted by me (1pt. min.). @ -no What testing was considered but not performed or refused? (CT, X-rays, U/S, labs)? Why? @ -none What meds were considered but not given or refused? Why? @ -none Did you discuss the management of the patient with other professionals (professionals i.e. , PA, HOTEL GUEST SERVICE AGENT, lab, RT, psych nurse, social secretary, optical lab technician, teacher, senior loan officer, watch caser)? Give summary @ -no Was smoking cessation discussed for >3mins.? @ -no Was critical care preformed (if so, how long)? @ -no Were there social determinants of health that impacted care today? How? (Homelessness, low income, unemployed, alcoholism, drug addiction, transportation, low edu. Level, literacy, decrease access to med. care, [facility], rehab)? @ -none Was there de-escalation of care discussed even if they declined (Discuss DNR or withdrawal of care, Hospice)? DNR status @ -no What co-morbidities impacted this encounter? (DM, HTN, Smoking, COPD, CAD, Cancer, CVA, ARF, Chemo, Hep., AIDS, mental health diagnosis, sleep apnea, morbid obesity)? @ -none Was patient admitted / discharged? Hospital course, mention meds given and route, prescriptions, significant lab abnormalities, going to OR and other pertinent info. @ - 54 male to ER for evaluation of uncontrolled hypertension weakness and fatigue recurrent dehydration and mild troponin leak. Patient will admit for blood pressure control and cardiology evaluation Admitted chest pain with uncontrolled hypertension Undiagnosed new problem with uncertain prognosis? @ -no Drug Therapy requiring intensive monitoring for toxicity (Heparin, Nitro, Insulin, Cardizem)? @ -no Were any procedures done? @ -no Diagnosis/symptom? @ - Acute, or Chronic, or Acute on Chronic? @ -Acute Uncomplicated (without systemic symptoms) or Complicated (systemic symptoms)? @ -Complicated Side effects of treatment? @ -no Exacerbation, Progression, or Severe Exacerbation? @ -exacerbation Poses a threat to life or bodily function? How? (Chest pain, USA, VA, pneumonia, PE, COPD, DKA, ARF, appy, cholecystitis, CVA, Diverticulitis, Homicidal, Suicidal, threat to staff... and all critical care pts) @ -yes severe hypertension Reevaluation #5: Differential Weakness: Hypoglycemia, shock, sepsis, hyponatremia, anemia, infection, VA, ETOH, adverse medicine reaction, overdose, stroke, this is not meant to be an all-inclusive list. - Consultations Consultation #1: Spoke with sound agrees to admit Medical Decision Making - Medical Decision Making 54 male to ER for evaluation of uncontrolled hypertension weakness and fatigue recurrent dehydration and mild troponin leak. Patient will admit for blood pressure control and cardiology evaluation - Lab Data Result diagrams: 02/16/25 05:29 02/16/25 05:29 Lab Results 02/15/25 02/15/25 02/15/25 Range/Units 07:25 07:25 07:25 WBC 10.1 (3.8-10.6) k/uL RBC 5.53 (4.30-5.90) m/uL Hgb 15.2 (13.0-17.5) gm/dL Hct 47.4 (39.0-53.0) % MCV 85.7 (80.0-100.0) fL MCH 27.5 (25.0-35.0) pg MCHC 32.0 (31.0-37.0) g/dL RDW 13.1 (11.5-15.5) % Plt Count 301 (150-450) k/uL MPV 8.0 Neutrophils % 72 % Lymphocytes % 21 % Monocytes % 5 % Eosinophils % 1 % Basophils % 0 % Neutrophils # 7.3 (1.3-7.7) k/uL Lymphocytes # 2.1 (1.0-4.8) k/uL Monocytes # 0.5 (0-1.0) k/uL Eosinophils # 0.1 (0-0.7) k/uL Basophils # 0.0 (0-0.2) k/uL Sodium 132 L (137-145) mmol/L Potassium 4.7 (3.5-5.1) mmol/L Chloride 102 (98-107) mmol/L Carbon Dioxide 20 L (22-30) mmol/L Anion Gap 10 mmol/L BUN 19 (9-20) mg/dL Creatinine 1.30 H (0.66-1.25) mg/dL Est GFR (CKD-EPI)AfAm 72 (>60 ml/min/1.73 sqM) Est GFR (CKD-EPI)NonAf 63 (>60 ml/min/1.73 sqM) Glucose 128 H (74-99) mg/dL Lactic Ac Sepsis Rflx Plasma Lactic Acid Cameron 3.0 H* (0.7-2.0) mmol/L Calcium 9.3 (8.4-10.2) mg/dL Phosphorus 2.1 L (2.5-4.5) mg/dL Magnesium 1.6 (1.6-2.3) mg/dL Total Bilirubin 1.5 H (0.2-1.3) mg/dL AST 36 (17-59) U/L ALT 34 (4-49) U/L Alkaline Phosphatase 84 (38-126) U/L Troponin I (0.000-0.034) ng/mL NT-Pro-B Natriuret Pep <20 pg/mL Total Protein 7.8 (6.3-8.2) g/dL Albumin 4.4 (3.5-5.0) g/dL TSH 2.450 (0.465-4.680) mIU/L Urine Color Urine Appearance (Clear) Urine pH (5.0-8.0) Ur Specific King (1.001-1.035) Urine Protein (Negative) Urine Glucose (UA) (Negative) Urine Ketones (Negative) Urine Blood (Negative) Urine Nitrite (Negative) Urine Bilirubin (Negative) Urine Urobilinogen (<2.0) mg/dL Ur Leukocyte Esterase (Negative) Urine RBC (0-5) /hpf Urine WBC (0-5) /hpf Urine Opiates Screen (NotDetected) Ur Oxycodone Screen (NotDetected) Urine Methadone Screen (NotDetected) Ur Barbiturates Screen (NotDetected) U Tricyclic Antidepress (NotDetected) Ur Phencyclidine Scrn (NotDetected) Ur Amphetamines Screen (NotDetected) U Methamphetamines Scrn (NotDetected) U Benzodiazepines Scrn (NotDetected) Urine Cocaine Screen (NotDetected) U Marijuana (THC) Screen (NotDetected) Influenza Type A (PCR) (Not Detectd) Influenza Type B (PCR) (Not Detectd) RSV (PCR) (Not Detectd) SARS-CoV-2 (PCR) (Not Detectd) 02/15/25 02/15/25 02/15/25 Range/Units 07:25 07:47 08:25 WBC (3.8-10.6) k/uL RBC (4.30-5.90) m/uL Hgb (13.0-17.5) gm/dL Hct (39.0-53.0) % MCV (80.0-100.0) fL MCH (25.0-35.0) pg MCHC (31.0-37.0) g/dL RDW (11.5-15.5) % Plt Count (150-450) k/uL MPV Neutrophils % % Lymphocytes % % Monocytes % % Eosinophils % % Basophils % % Neutrophils # (1.3-7.7) k/uL Lymphocytes # (1.0-4.8) k/uL Monocytes # (0-1.0) k/uL Eosinophils # (0-0.7) k/uL Basophils # (0-0.2) k/uL Sodium (137-145) mmol/L Potassium (3.5-5.1) mmol/L Chloride (98-107) mmol/L Carbon Dioxide (22-30) mmol/L Anion Gap mmol/L BUN (9-20) mg/dL Creatinine (0.66-1.25) mg/dL Est GFR (CKD-EPI)AfAm (>60 ml/min/1.73 sqM) Est GFR (CKD-EPI)NonAf (>60 ml/min/1.73 sqM) Glucose (74-99) mg/dL Lactic Ac Sepsis Rflx Y Plasma Lactic Acid Cameron (0.7-2.0) mmol/L Calcium (8.4-10.2) mg/dL Phosphorus (2.5-4.5) mg/dL Magnesium (1.6-2.3) mg/dL Total Bilirubin (0.2-1.3) mg/dL AST (17-59) U/L ALT (4-49) U/L Alkaline Phosphatase (38-126) U/L Troponin I 0.021 (0.000-0.034) ng/mL NT-Pro-B Natriuret Pep pg/mL Total Protein (6.3-8.2) g/dL Albumin (3.5-5.0) g/dL TSH (0.465-4.680) mIU/L Urine Color Colorless Urine Appearance Clear (Clear) Urine pH 7.0 (5.0-8.0) Ur Specific King 1.007 (1.001-1.035) Urine Protein Negative (Negative) Urine Glucose (UA) Negative (Negative) Urine Ketones Negative (Negative) Urine Blood Trace H (Negative) Urine Nitrite Negative (Negative) Urine Bilirubin Negative (Negative) Urine Urobilinogen <2.0 (<2.0) mg/dL Ur Leukocyte Esterase Negative (Negative) Urine RBC <1 (0-5) /hpf Urine WBC <1 (0-5) /hpf Urine Opiates Screen Not Detected (NotDetected) Ur Oxycodone Screen Not Detected (NotDetected) Urine Methadone Screen Not Detected (NotDetected) Ur Barbiturates Screen Not Detected (NotDetected) U Tricyclic Antidepress Not Detected (NotDetected) Ur Phencyclidine Scrn Not Detected (NotDetected) Ur Amphetamines Screen Not Detected (NotDetected) U Methamphetamines Scrn Not Detected (NotDetected) U Benzodiazepines Scrn Not Detected (NotDetected) Urine Cocaine Screen Not Detected (NotDetected) U Marijuana (THC) Screen Not Detected (NotDetected) Influenza Type A (PCR) (Not Detectd) Influenza Type B (PCR) (Not Detectd) RSV (PCR) (Not Detectd) SARS-CoV-2 (PCR) (Not Detectd) 02/15/25 Range/Units 08:25 WBC (3.8-10.6) k/uL RBC (4.30-5.90) m/uL Hgb (13.0-17.5) gm/dL Hct (39.0-53.0) % MCV (80.0-100.0) fL MCH (25.0-35.0) pg MCHC (31.0-37.0) g/dL RDW (11.5-15.5) % Plt Count (150-450) k/uL MPV Neutrophils % % Lymphocytes % % Monocytes % % Eosinophils % % Basophils % % Neutrophils # (1.3-7.7) k/uL Lymphocytes # (1.0-4.8) k/uL Monocytes # (0-1.0) k/uL Eosinophils # (0-0.7) k/uL Basophils # (0-0.2) k/uL Sodium (137-145) mmol/L Potassium (3.5-5.1) mmol/L Chloride (98-107) mmol/L Carbon Dioxide (22-30) mmol/L Anion Gap mmol/L BUN (9-20) mg/dL Creatinine (0.66-1.25) mg/dL Est GFR (CKD-EPI)AfAm (>60 ml/min/1.73 sqM) Est GFR (CKD-EPI)NonAf (>60 ml/min/1.73 sqM) Glucose (74-99) mg/dL Lactic Ac Sepsis Rflx Plasma Lactic Acid Cameron (0.7-2.0) mmol/L Calcium (8.4-10.2) mg/dL Phosphorus (2.5-4.5) mg/dL Magnesium (1.6-2.3) mg/dL Total Bilirubin (0.2-1.3) mg/dL AST (17-59) U/L ALT (4-49) U/L Alkaline Phosphatase (38-126) U/L Troponin I (0.000-0.034) ng/mL NT-Pro-B Natriuret Pep pg/mL Total Protein (6.3-8.2) g/dL Albumin (3.5-5.0) g/dL TSH (0.465-4.680) mIU/L Urine Color Urine Appearance (Clear) Urine pH (5.0-8.0) Ur Specific King (1.001-1.035) Urine Protein (Negative) Urine Glucose (UA) (Negative) Urine Ketones (Negative) Urine Blood (Negative) Urine Nitrite (Negative) Urine Bilirubin (Negative) Urine Urobilinogen (<2.0) mg/dL Ur Leukocyte Esterase (Negative) Urine RBC (0-5) /hpf Urine WBC (0-5) /hpf Urine Opiates Screen (NotDetected) Ur Oxycodone Screen (NotDetected) Urine Methadone Screen (NotDetected) Ur Barbiturates Screen (NotDetected) U Tricyclic Antidepress (NotDetected) Ur Phencyclidine Scrn (NotDetected) Ur Amphetamines Screen (NotDetected) U Methamphetamines Scrn (NotDetected) U Benzodiazepines Scrn (NotDetected) Urine Cocaine Screen (NotDetected) U Marijuana (THC) Screen (NotDetected) Influenza Type A (PCR) Not Detected (Not Detectd) Influenza Type B (PCR) Not Detected (Not Detectd) RSV (PCR) Not Detected (Not Detectd) SARS-CoV-2 (PCR) Not Detected (Not Detectd) - Radiology Data Radiology results: report reviewed (CTA chest CT chest abdomen pelvis negative for acute disease), image reviewed Critical Care Time Critical Care Time: Yes Total Critical Care Time: 31 Disposition Clinical Impression: Uncontrolled hypertension, Weakness, Hypertensive urgency, Dehydration, Elevated troponin Disposition: ADMITTED IP TO THIS [facility] Condition: Stable Is patient prescribed a controlled substance at d/c from ED?: No Time of Disposition: 10:40
[2025-02-15] MEDS: SODIUM CHLORIDE 0.9% 1,000 ML IV ONE ×2 (07:29→08:24)
[2025-02-15 07:38] LABS: Basophils % (A) 0 %; Eosinophils # (A) 0.1 k/uL (0-0.7); Eosinophils % (A) 1 %; HCT 47.4 % (39.0-53.0); HGB 15.2 gm/dL (13.0-17.5); Lymphocytes # (A) 2.1 k/uL (1.0-4.8); Lymphocytes % (A) 21 %; MCH 27.5 pg (25.0-35.0); MCV 85.7 fL (80.0-100.0); Monocytes # (A) 0.5 k/uL (0-1.0); Monocytes % (A) 5 %; Neutrophils # (A) 7.3 k/uL (1.3-7.7); Neutrophils % (A) 72 %; Platelet Count 301 k/uL (150-450); RBC 5.53 m/uL (4.30-5.90); RDW 13.1 % (11.5-15.5); WBC 10.1 k/uL (3.8-10.6)
[2025-02-15 07:47] LABS: ALT 34 U/L (4-49); African American GFR (CKD) 72 (>60 ml/min/1.73 sqM); Albumin 4.4 g/dL (3.5-5.0); Anion Gap 10 mmol/L; Blood Urea Nitrogen 19 mg/dL (9-20); Calcium 9.3 mg/dL (8.4-10.2); Carbon Dioxide 20 mmol/L (22-30); Chloride 102 mmol/L (98-107); Glucose 128 mg/dL (74-99); Non-African American GFR(CKD) 63 (>60 ml/min/1.73 sqM); Phosphorus 2.1 mg/dL (2.5-4.5); Sodium 132 mmol/L (137-145); Total Bilirubin 1.5 mg/dL (0.2-1.3); Total Protein 7.8 g/dL (6.3-8.2)
[2025-02-15 07:48] LABS: AST 36 U/L (17-59); Alkaline Phosphatase 84 U/L (38-126); Magnesium 1.6 mg/dL (1.6-2.3); Potassium 4.7 mmol/L (3.5-5.1)
[2025-02-15 07:55] LABS: NT-Pro-B-Type Natriuretic Pept <20 pg/mL
[2025-02-15] MEDS: hydrALAZINE HCL 20 MG/ML 1 ML VIAL IVP STA (08:24)
[2025-02-15 09:08] LABS: Influenza A Not Detected (Not Detectd); Influenza B Not Detected (Not Detectd); RSV Not Detected (Not Detectd)
[2025-02-15 09:11] LABS: Appearance,Urine Clear (Clear); Bilirubin,Urine Negative (Negative); Blood,Urine Trace (Negative); Color,Urine Colorless; Glucose,Urine (UA) Negative (Negative); Ketones,Urine Negative (Negative); Leukocyte Esterase,Urine Negative (Negative); Nitrite,Urine Negative (Negative); Protein,Urine Negative (Negative); RBC,Urine <1 /hpf (0-5); Specific Gravity,Urine 1.007 (1.001-1.035); Urobilinogen,Urine <2.0 mg/dL (<2.0); WBC,Urine <1 /hpf (0-5)
[2025-02-15 09:21] LABS: Amphetamine Screen,Urine Not Detected (NotDetected); Barbiturate Screen,Urine Not Detected (NotDetected); Benzodiazepines Screen,Urine Not Detected (NotDetected); Cocaine Screen,Urine Not Detected (NotDetected); Methadone Screen, Urine Not Detected (NotDetected); Opiate Screen,Urine Not Detected (NotDetected); Oxycodone Screen, Urine Not Detected (NotDetected); Phencyclidine Screen,Urine Not Detected (NotDetected); Tricyclic Antidepressant,Urine Not Detected (NotDetected); Urn Cannabinoid Scrn Not Detected (NotDetected)
[2025-02-15] MEDS ORDERED: ONDANSETRON 4 MG/2 ML VIAL IVP PRN (10:36)
[2025-02-15] MEDS ORDERED: MORPHINE SULFATE 4 MG/ML SYRINGE IV PRN (10:36)
[2025-02-15] MEDS ORDERED: NALOXONE 0.4 MG/ML 1 ML VIAL IV PRN (10:36)
--- NOTE | 2025-02-15 11:12 | CT ---
EXAMINATION TYPE: CT angio chest DATE OF EXAM: 02/15/2025 10:33 AM COMPARISON: Chest radiograph from same day. CLINICAL INDICATION: Male, 54 years old with history of cp; WEAKNESS, CHEST PAIN TECHNIQUE/CONTRAST: CTA scan of the thorax is performed with IV Contrast, patient injected with 100 mL of Isovue 300, MIP images are created and reviewed these are created on a separate workstation.. CT DLP: 470.6 mGycm, Automated exposure control for dose reduction was used. FINDINGS: Lungs/Pleura: No evidence of focal consolidation, pleural effusion or pneumothorax. 6 mm nodule right middle lobe series 411 image 24. Airway: Large airways are patent. Heart: Size within normal limits. No significant coronary artery calcifications. Vasculature: There is no evidence for a filling defect within the pulmonary vasculature to suggest ac josé miguel pulmonary embolism. The pulmonary artery is of normal size. Mediastinum: No gross evidence of adenopathy. Musculoskeletal: Mild disc degeneration changes are present throughout the thoracolumbar spine second colten to osteophyte formation and facet joint arthropathy. Soft Tissues/lymph nodes: Unremarkable. Lower neck: No significant findings. Upper Abdomen: No significant findings. IMPRESSION: 1. No evidence of pulmonary embolism. 2. Right middle lobe 6 mm pulmonary nodule. Consider follow-up in 6-12 months to ensure resolution. Follow up recommendations for incidental pulmonary nodules, if there are any, are per [employer] or [employer]. [email or web address]://radiopaedia.org/articles/[email or web address]?lang=us [facility], , 02/15/2025 11:10 AM
--- NOTE | 2025-02-15 11:18 | CT ---
EXAMINATION TYPE: CT abdomen pelvis w con DATE OF EXAM: 02/15/2025 10:40 AM COMPARISON: CT chest same day. CLINICAL INDICATION: Male, 54 years old with history of pain; ABD PAIN TECHNIQUE: Axial CT abdomen pelvis w con;Sagittal and coronal reformats were created on a separate w orkstation. Contrast used:100 mL of Isovue 300 with IV Contrast, (none if empty) Oral contrast used: without Oral Contrast (none if empty) CT DLP: 1313.1 mGycm, Automated exposure control for dose reduction was used. FINDINGS: LOWER CHEST: Right middle lobe 6 mm nodule as described on CT chest same day. ABDOMEN LIVER: Subcentimeter probable left hepatic lobe cyst. No follow up recommended. GALLBLADDER AND BILE DUCTS: Unremarkable. PANCREAS: Unremarkable. SPLEEN: Unremarkable. ADRENAL GLANDS: Unremarkable. KIDNEYS AND URETERS: No evidence of hydronephrosis or renal calculus. The ureters are unremarkable. PELVIS BLADDER: No evidence for wall thickening or mass given limitations of exam. REPRODUCTIVE: Unremarkable. ABDOMEN & PELVIS STOMACH AND BOWEL: No evidence of bowel obstruction. The appendix is normal. Few scattered colonic di verticula. PERITONEUM/RETROPERITONEUM: No evidence of pneumoperitoneum or free fluid. VASCULATURE: No evidence of aortic aneurysm. MUSCULOSKELETAL: No acute osseous abnormalities LYMPH NODES: No gross evidence for lymphadenopathy. SOFT TISSUE/ABDOMINAL WALL: Unremarkable IMPRESSION: 1. No evidence for acute process. 2. Colonic diverticulosis. 3. Normal appendix. 4. No obstructive uropathy or renal calculus. [facility], , 02/15/2025 11:16 AM
--- NOTE | 2025-02-15 12:04 | P.HPIM ---
History of Present Illness H&P Date: 02/15/25 History of Presenting Illness: Patient is a very pleasant 54-year-old male with a past medical history of hypertension and suspected underlying CKD. He presented to the emergency department with a chief complaint of hypertension and weakness accompanied chest pain and mild shortness of breath. At time of arrival to our facility, patient reports chest pain and shortness of breath has resolved. He currently denies having any headache, lightheadedness, dizziness, chest pain, palpitations, cough or congestion, abdominal pain, nausea, vomiting, or experiencing any numbness/ tingling/weakness/swelling in his extremities. Patient denies any previous nicotine use, alcohol use, or drug use. He reports that he does not have a primary care provider and did not take his morning blood pressure medications. Upon arrival to our facility, patient underwent evaluation in the emergency department. Vital signs upon arrival show blood pressure 166/110, heart rate 101, respiratory rate 18, temp 97.7 F, and SpO2 100% on room air. EKG was completed showing normal sinus rhythm at 96 bpm with prominent Q-wave in inferior leads II, III, and aVF otherwise no noted T wave or ST abnormality showing no signs of acute ischemia on personal review and interpretation. Labs completed and reviewed. CBC unremarkable. BMP showing mild hyponatremia with sodium 132, hypocarbia with bicarb of 20, and slight elevation of renal function with BUN of 19, creatinine 1.30, GFR of 72 which appears to be at patient's baseline. Blood glucose 128. Magnesium was low at 1.6. Liver profile showing elevated total bili of 1.5 otherwise normal findings. Lactic acid was 3.0. Troponin was 0.021 and proBNP less than 20. TSH normal findings at 2.450. Patient was given a 2 L bolus of 0.9% normal saline in the emergency department. CTA chest was completed showing no evidence for pulmonary emboli revealing a right middle lobe 6 mm pulmonary nodule recommending outpatient follow-up in 6 to 12 months to ensure resolution. CT abdomen and pelvis with contrast also completed and was negative for acute process showing colonic diverticulosis. Patient was admitted under our services for cardiac observation with consultation to batch attendant. Review of systems: Pertinent positives and negatives as discussed in HPI, a complete review of systems was performed and all other systems are negative. Physical exam: Vital signs reviewed and stable. General: Nontoxic, no distress and appears stated age. Derm: Skin warm and dry, normal coloration for ethnicity. Head: Atraumatic, normocephalic and symmetric. Eyes: EOM's intact, no lid lag, and anicteric sclera Mouth: no lip lesions, mucus membranes moist Cardiovascular: regular rate and rhythm with normal S1S2, no murmur, positive po sterior tibial pulses bilaterally, and cap refill < 2 seconds. Lungs: Respirations even, regular, and unlabored on room air. Lungs CTA bilaterally, no rhonchi, no rales, no wheezing, and no accessory muscle usage. Abdominal: soft, nontender to palpation, no guarding, no appreciable organomegaly Ext: ROM intact. No gross muscle atrophy, no edema, no contractures Neuro: Speech clear, face symmetrical and CN II-XII grossly intact with no noted focal neuro deficits Psych: Alert and oriented to person, place, time, and situation. Appropriate and pleasant affect. Assessment and Plan of Care: Chest pain, rule out acute coronary event Hypertension, poorly controlled -Cardiology consulted, appreciate recommendations -Telemetry monitoring -Trend troponins -Aspirin 324 mg x 1 dose followed by 81 mg daily and atorvastatin 40 mg daily -Lipid profile was completed 02/09/2025 showing elevated triglycerides of 155 otherwise normal findings. -Echocardiogram -Patient to resume daily antihypertensive medication regimen with hydrochlorothiazide 50 mg daily, losartan 25 mg daily, and Procardia 90 mg daily. Lactic acidosis. -Patient given 2 L bolus in the emergency department, repeat lactate 2 monitor for resolution. Hyponatremia. -Patient received 2 L bolus of 0.9% normal saline in the emergency department. Hyponatremia and lactic acidosis likely secondary to mild dehydration, encourage oral intake of fluids with water and avoid caffeinated beverages. Will monitor for resolution with repeat a.m. labs. May otherwise resume daily home medication regimen with hydrochlorothiazide 50 mg daily. Data and imaging reviewed: As stated above in HPI. The patient is admitted with an anticipated less than 2 midnight stay for evaluation of CP, generalized weakness, and hypertension. CODE STATUS: Full code DVT prophylaxis: Lovenox Discussed with: Patient, RN, and ED physician Anticipated discharge date: Likely within the next [address]: Home Patient was seen independently by Nurse Practitioner. This document was prepared using [employer] dictation software. Please allow for errors in school operations manager while rare they do occur. Reynaldo Candelario NP rendered care for this patient independently, reviewed the findings and plan as documented in the note above and agree with plan. I did not physically speak with or examine the patient on this date. Past Medical History Past Medical History: Hypertension History of Any Multi-Drug Resistant Organisms: None Reported Past Surgical History: No Surgical Hx Reported Past Psychological History: No Psychological Hx Reported Smoking Status: Never smoker Past Alcohol Use History: None Reported Past Drug Use History: None Reported Medications and Allergies Home Medications Medication Instructions Recorded Confirmed Type Aspirin EC [Ecotrin Low Dose] 81 mg PO DAILY 02/08/25 02/15/25 History Losartan [Cozaar] 25 mg PO DAILY #30 tab 02/10/25 02/15/25 Rx NIFEdipine XL [Procardia XL] 90 mg PO DAILY #30 tab 02/10/25 02/15/25 Rx hydroCHLOROthiazide [Hydrodiuril] 50 mg PO DAILY #30 tab 02/10/25 02/15/25 Rx Allergies Allergy/AdvReac Type Severity Reaction Status Date / Time No Known Allergies Allergy Verified 02/15/25 09:07 Physical Exam Vitals: Vital Signs Temp Pulse Resp BP Pulse Ox 02/15/25 11:19 91 18 152/96 98 02/15/25 10:10 92 18 155/96 97 02/15/25 07:31 95 18 159/122 97 02/15/25 06:59 97.7 F 101 H 18 166/110 100 Intake and Output 02/14/25 02/15/25 02/15/25 22:59 06:59 14:59 Other: Weight 104.326 kg Results CBC & Chem 7: 02/15/25 07:25 02/15/25 07:25 Labs: Abnormal Lab Results - Last 24 Hours (Table) 02/15/25 02/15/25 02/15/25 Range/Units 07:25 07:25 08:25 Sodium 132 L (137-145) mmol/L Carbon Dioxide 20 L (22-30) mmol/L Creatinine 1.30 H (0.66-1.25) mg/dL Glucose 128 H (74-99) mg/dL Plasma Lactic Acid Cameron 3.0 H* (0.7-2.0) mmol/L Phosphorus 2.1 L (2.5-4.5) mg/dL Total Bilirubin 1.5 H (0.2-1.3) mg/dL Urine Blood Trace H (Negative)
[2025-02-15] MEDS: ASPIRIN 81 MG PO STA (12:45)
[2025-02-15] MEDS: NIFEdipine XL 90 MG TAB.ER.24 PO SCH (12:45)
[2025-02-15] MEDS: LOSARTAN 25 MG TAB PO SCH (12:45)
[2025-02-15] MEDS: MAGNESIUM SULFATE-D5W PMX 1 GM in DEXTROSE/WATER 1 100ML.BAG IVPB SCH (13:23)
[2025-02-15 13:56] LABS: Partial Thromboplastin Time 24.3 sec (22.0-30.0)
[2025-02-15] MEDS: ATORVASTATIN 40 MG TAB PO SCH (20:47)
[2025-02-16 08:26] LABS: Magnesium 2.1 mg/dL (1.5-2.4)
[2025-02-16 08:28] LABS: ALT 30 U/L (10-49); AST 23 U/L (14-35); Albumin 4.1 g/dL (3.8-4.9); Albumin/Globulin Ratio 1.37 Ratio (1.60-3.17); Alkaline Phosphatase 99 U/L (41-126); BUN/Creat Ratio 12.53 Ratio (12.00-20.00); Blood Urea Nitrogen 18.8 mg/dL (9.0-27.0); Calcium 9.3 mg/dL (8.7-10.3); Carbon Dioxide 22.8 mmol/L (21.6-31.8); Chloride 102 mmol/L (96-109); Glucose 100 mg/dL (70-110); Potassium 4.3 mmol/L (3.5-5.5); Sodium 137 mmol/L (135-145); Total Bilirubin 0.8 mg/dL (0.3-1.2); Total Protein 7.1 g/dL (6.2-8.2)
[2025-02-16 08:52] LABS: Basophils # (A) 0.05 X 10*3/uL (0.00-0.10); Basophils % (A) 0.5 %; Eosinophils # (A) 0.19 X 10*3/uL (0.04-0.35); Eosinophils % (A) 1.8 %; HCT 47.2 % (39.6-50.0); HGB 15.4 g/dL (13.0-17.0); Lymphocytes # (A) 3.91 X 10*3/uL (0.90-5.00); Lymphocytes % (A) 37.9 %; MCH 27.9 pg (27.0-32.0); MCHC 32.6 g/dL (32.0-37.0); MCV 85.5 FL (80.0-97.0); Mean Platelet Volume 11.8 FL (9.5-12.2); Monocytes # (A) 0.88 X 10*3/uL (0.20-1.00); Monocytes % (A) 8.5 %; NRBC Per 100 WBC 0 X 10*3/uL (0.00-0.01); Neutrophils # (A) 5.25 X 10*3/uL (1.80-7.70); Platelet Count 281 X 10*3/uL (140-440); RBC 5.52 X 10*6/uL (4.40-5.60); RDW 13.8 % (11.5-14.5); WBC 10.31 X 10*3/uL (4.50-10.00)
[2025-02-16] MEDS: VALSARTAN 160 MG TAB PO SCH (09:25)
[2025-02-16] MEDS: ENOXAPARIN 40 MG/0.4 ML SYRINGE SQ SCH (09:25)
[2025-02-16] MEDS: amLODIPine 5 MG TAB PO SCH (09:25)
[2025-02-16] MEDS: ASPIRIN 81 MG PO SCH (09:25)
[2025-02-16] MEDS: PANTOPRAZOLE 40 MG/10 ML VIAL IV SCH (09:26)
--- NOTE | 2025-02-16 09:56 | US ---
EXAMINATION TYPE: US renal artery duplex complet DATE OF EXAM: 02/16/2025 COMPARISON: NONE CLINICAL INDICATION: Male, 54 years old with history of uncontrolled HTN; HTN for 2 years, controlled with medication TECHNIQUE: Grayscale, color Doppler and spectral Doppler imaging of the bilateral renal arteries and kidneys. FINDINGS: MEASUREMENTS: RENAL SIZE: Right Kidney: 10.3 x 6.1 x 4.7cm Left Kidney: 10.2 x 5.4 x 4.6cm Right Kidney: lobulated contour Left Kidney: lobulated contour Abd Aorta: unremarkable RESISTANCE INDEX Right: 0.51 Left: 0.51 RA/AO RATIO (< 3.5 ) Right: 2.6 Left: 1.5 RENAL ARTERY VELOCITY ( < 180 cm/s) Right: 230.4cm/s Left: 133.7cm/s Ferryboat Operator Cable Notes: Technical limitations due to large amount of overlying bowel gas. limited evalu ation of renal arteries. ?possible elevated velocities right renal artery. Appropriate color Doppler flow and spectral waveforms to the kidneys bilaterally. Grayscale imaging of the kidneys and show no evidence for hydronephrosis or mass. No renal calculi or cysts visualized. IMPRESSION: Mild right renal artery stenosis by peak systolic velocity. [facility], , 02/16/2025 9:54 AM
--- NOTE | 2025-02-16 10:24 | CA ---
Transthoracic Echo Report Name: Don Camara Age: 54 Gender: M : 1970 Exam Date: 02/15/2025 13:58 Exam Location: [place] [facility] Ht (in): 73 Wt (lb): 230 Ordering Physician: Reynaldo Candelario Attending/Referring Phys: Theoretical Physics Teacher Lauren Loyd RDCS Procedure CPT: Indications: CHEST PAIN, POORLY CONTROLLED HTN Cardiac Hx: Technical Quality: Fair Contrast 1: Total Dose (mL): Contrast 2: Total Dose (mL): MEASUREMENTS (Male / Female) Normal Values 2D ECHO LV Diastolic Diameter PLAX 4.1 cm 4.2 - 5.9 / 3.9 - 5.3 cm LV Systolic Diameter PLAX 2.3 cm IVS Diastolic Thickness 1.4 cm 0.6 - 1.0 / 0.6 - 0.9 cm LVPW Diastolic Thickness 1.4 cm 0.6 - 1.0 / 0.6 - 0.9 cm LV Relative Wall Thickness 0.7 RV Internal Dim ED PLAX 1.7 cm LA Systolic Diameter LX 3.3 cm 3.0 - 4.0 / 2.7 - 3.8 cm LV Diastolic Volume MOD BP 70.3 cm??? 67 - 155 / 56 - 104 cm??? LV Systolic Volume MOD BP 31.3 cm??? 22 - 58 / 19 - 49 cm??? LV Ejection Fraction MOD BP 55.4 % >= 55 % LV Cardiac Index MOD BP 1563.1 cm???/min???m??? LV Diastolic Volume MOD 4C 75.0 cm??? LV Systolic Volume MOD 4C 34.4 cm??? LV Ejection Fraction MOD 4C 54.2 % LV Cardiac Index MOD 4C 1632.4 cm???/min???m??? LV Diastolic Length 4C 7.7 cm LV Systolic Length 4C 6.1 cm LV Diastolic Volume MOD 2C 64.3 cm??? LV Systolic Volume MOD 2C 29.5 cm??? LV Ejection Fraction MOD 2C 54.1 % LV Cardiac Index MOD 2C 1396.3 cm???/min???m??? LV Diastolic Length 2C 7.4 cm LV Systolic Length 2C 6.1 cm LA Volume 44.3 cm??? 18 - 58 / 22 - 52 cm??? LA Volume Index 18.9 cm???/m??? 16 - 28 cm???/m??? M-MODE Aortic Root Diameter MM 3.1 cm LA Systolic Diameter MM 3.7 cm LA Ao Ratio MM 1.2 AV Cusp Separation MM 1.9 cm DOPPLER MV Area PHT 2.8 cm??? Mitral E Point Velocity 46.9 cm/s Mitral A Point Velocity 94.2 cm/s Mitral E to A Ratio 0.5 MV Deceleration Time 275.8 ms FINDINGS Left Ventricle Left ventricular ejection fraction is estimated at 50-55%. Mildly increased septal wall thickness. Normal left ventricular systolic function with no obvious regional wall motion abnormalities. Left ventricular cavity size normal. Right Ventricle Normal right ventricular size and function. Right ventricular systolic pressure within normal limits. Right Atrium Normal right atrial size. Left Atrium Mild left atrial dilatation. Mitral Valve Structurally normal mitral valve. Mild mitral regurgitation. No mitral stenosis. Aortic Valve Trileaflet aortic valve. No aortic valve stenosis or regurgitation. Tricuspid Valve Structurally normal tricuspid valve. Trace tricuspid regurgitation. No tricuspid stenosis. Pulmonic Valve Structurally normal pulmonic valve. No pulmonic stenosis. Trace pulmonic regurgitation. Pericardium No pericardial or pleural effusion. Aorta Normal size aortic root and proximal ascending aorta. CONCLUSIONS Indication: Hypertensive urgency Mild LVH with left ventricular systolic function at the lower limits of normal Normal RV size and function Mild biatrial enlargement Prominent posterior pericardial stripe Previewed by: Dr. Aquilino Chris MD (Electronically Signed) Final Date: 16 February 2025 10:23
--- NOTE | 2025-02-16 13:05 | P.CRDCN ---
History of Present Illness Consult date: 02/16/25 Consult reason: chest pain History of present illness: This is a 54-year-old male with no previous cardiac history does not follow with a kindergarten aide. We have been asked to evaluate the patient for chest pain. Patient had a recent hospitalization 02/08 - 02/10 and was treated for hypertensive urgency. Patient was started on hydrochlorothiazide, losartan and Procardia. Cardiology was not involved in that admission. He was discharged home and patient states that he was feeling heaviness all over his body like he could not move his body. If he tried to move fast he felt off and dizzy. He also had episodes where his heart felt like it was racing fast and it would last a few minutes and go away on its own. He denies chest pain. He states he can walk up a flight of stairs without any chest pain or shortness of breath. He has been taking all of his medications that he was discharged on last week. He states initially his symptoms went away and then they came back. He does have family history of mom and dad with hypertension. Blood pressure at the time of presentation was 166/110. This morning, blood pressure 147/90, heart rate in the 90s, pulse ox 100% on room air. -EKG: Sinus rhythm with no acute ST changes. -Chest x-ray: -CTA chest: No pulmonary embolism. Right middle lobe 6 mm pulmonary nodule. -CT abdomen and chest with contrast: No acute process. Colonic diverticulosis, normal appendix, no obstructive uropathy or renal calculus. -Laboratory studies: WBC 10.3, hemoglobin 15.4, potassium 4.3, BUN 18 and creat inine 1.5. Troponin negative x 3. Cepheid viral panel not detected. Urine drug screen not detected. -Home cardiac medications: Aspirin 81 mg daily, hydrochlorothiazide 50 mg daily, losartan 25 mg daily, Procardia 90 mg daily. Review Of Systems: At the time of my exam: CONSTITUTIONAL: Denies fever or chills. HEENT: Denies blurred vision, vision changes, or eye pain. Denies hemoptysis CARDIOVASCULAR: Denies chest pain. Denies orthopnea. Denies PND. Denies palpitations RESPIRATORY: Denies shortness of breath. GASTROINTESTINAL: Denies abdominal pain. Denies nausea or vomiting. HEMATOLOGIC: Denies bleeding disorders. GENITOURINARY: Denies any blood in urine. SKIN: Denies puritis. Denies rash. Physical examination: Gen: This is a 54-year-old black male in no acute distress VS: reviewed HEENT: Head is atraumatic, normocephalic. Pupils equal, round. Sclerae is anicteric. NECK: Supple. No JVD. LUNGS: Clear to auscultation. No wheezes or rhonchi. No intercostal retractions. HEART: Regular rate and rhythm. No murmur. ABDOMEN: Soft No tenderness. EXTREMITIES: No pedal edema. No calf tenderness. NEUROLOGICAL: Patient is awake, alert and oriented x3. Assessment: Heaviness sensation of his whole body No complaints of chest pain Hypertension with hypertensive cardiovascular disease Dyslipidemia Plan: Stop patient's home cardiac medications Start patient on amlodipine 5 mg twice daily, valsartan 160 mg twice daily Continue patient on atorvastatin Renal ultrasound obtained which revealed mild right renal artery stenosis. Echocardiogram obtained which reveals EF 50 to 55%, mild biatrial enlargement. Further recommendations to follow based upon clinical course Thank you kindly for this consultation. Nurse practitioner note has been reviewed, I agree with documented findings and plan of care. Patient was seen and examined. Past Medical History Past Medical History: Hypertension History of Any Multi-Drug Resistant Organisms: None Reported Past Surgical History: No Surgical Hx Reported Past Psychological History: No Psychological Hx Reported Smoking Status: Never smoker Past Alcohol Use History: None Reported Past Drug Use History: None Reported Medications and Allergies Home Medications Medication Instructions Recorded Confirmed Type Aspirin EC [Ecotrin Low Dose] 81 mg PO DAILY 02/08/25 02/15/25 History Losartan [Cozaar] 25 mg PO DAILY #30 tab 02/10/25 02/15/25 Rx NIFEdipine XL [Procardia XL] 90 mg PO DAILY #30 tab 02/10/25 02/15/25 Rx hydroCHLOROthiazide [Hydrodiuril] 50 mg PO DAILY #30 tab 02/10/25 02/15/25 Rx Allergies Allergy/AdvReac Type Severity Reaction Status Date / Time No Known Allergies Allergy Verified 02/15/25 09:07 Physical Exam Vitals: Vital Signs Temp Pulse Pulse Resp BP BP Pulse Ox 02/16/25 01:23 94 17 02/16/25 00:40 98.2 F 94 17 147/90 100 02/15/25 20:47 71 17 02/15/25 19:15 98.0 F 71 17 138/84 93 L 02/15/25 18:19 98.6 F 103 H 20 120/86 02/15/25 18:04 98.0 F 94 18 145/99 98 02/15/25 16:00 98.0 F 95 16 160/102 99 02/15/25 12:47 101 H 18 143/98 97 02/15/25 11:19 91 18 152/96 98 02/15/25 10:10 92 18 155/96 97 Intake and Output 02/15/25 02/16/25 02/16/25 22:59 06:59 14:59 Other: Voiding Method Toilet Toilet # Voids 2 2 Weight 104.326 kg Results 02/16/25 05:29 02/16/25 05:29 Cardiac Enzymes 02/15/25 02/15/25 Range/Units 11:57 15:13 Troponin I <0.012 <0.012 (0.000-0.034) ng/mL Coagulation 02/15/25 Range/Units 13:33 PT 11.0 (10.0-12.5) sec APTT 24.3 (22.0-30.0) sec Current Medications Generic Name Dose Route Start Last Admin Trade Name Freq PRN Reason Stop Dose Admin Aspirin 81 mg 02/16/25 09:00 Aspirin 81 Mg PO DAILY WADE Atorvastatin Calcium 40 mg 02/15/25 21:00 02/15/25 20:47 Atorvastatin 40 Mg Tab PO 40 mg HS WADE Administration Enoxaparin Sodium 40 mg 02/16/25 09:00 Enoxaparin 40 Mg/0.4 Ml Syringe SQ DAILY WADE Hydrochlorothiazide 50 mg 02/15/25 12:00 02/15/25 12:45 Hydrochlorothiazide 50 Mg Tab PO 50 mg DAILY WADE Administration Losartan Potassium 25 mg 02/15/25 12:00 02/15/25 12:45 Losartan 25 Mg Tab PO 25 mg DAILY WADE Administration Morphine Sulfate 4 mg 02/15/25 10:36 Morphine Sulfate 4 Mg/Ml Syringe IV Q4HR PRN Severe Pain (Scale 7 to 10) Naloxone HCl 0.2 mg 02/15/25 10:36 Naloxone 0.4 Mg/Ml 1 Ml Vial IV Q2M PRN Opioid Reversal Nifedipine 90 mg 02/15/25 12:00 02/15/25 12:45 Nifedipine Xl 90 Mg Tab.Er.24 PO 90 mg DAILY WADE Administration Ondansetron HCl 4 mg 02/15/25 10:36 Ondansetron 4 Mg/2 Ml Vial IVP Q8HR PRN Nausea And Vomiting Pantoprazole Sodium 40 mg 02/16/25 09:00 Pantoprazole 40 Mg/10 Ml Vial IV DAILY WADE Intake and Output 02/15/25 02/16/25 02/16/25 22:59 06:59 14:59 Other: Voiding Method Toilet Toilet # Voids 2 2 Weight 104.326 kg 02/15/25 07:25 02/15/25 07:25
[2025-02-16 14:09] VITALS: BP 117/80; PULSE 103; RESP 18; TEMP 98.7
--- NOTE | 2025-02-16 14:45 | P.DS ---
Providers Date of admission: 02/15/25 10:38 Expected date of discharge: 02/16/25 Attending physician: Jean Briggs MD Consults: 02/15/25 10:36 Consult Physician Routine Consulting Provider: Florence Dodd Consult Reason/Comments: cp Do you want consulting provider notified?: Yes Primary care physician: Stated None Hospital Course: Discharge Diagnosis: Chest pain, acute coronary event ruled out. Hypertension, poorly controlled Mild renal artery stenosis Lactic acidosis. Resolved after IV fluid hydration. Hyponatremia. Resolved after IV fluid hydration. Hospital Course: Patient is a very pleasant 54-year-old male with a past medical history of hypertension and suspected underlying CKD. He presented to the emergency department with a chief complaint of hypertension and weakness accompanied chest pain and mild shortness of breath. At time of arrival to our facility, patient reports chest pain and shortness of breath has resolved. He currently denies having any headache, lightheadedness, dizziness, chest pain, palpitations, cough or congestion, abdominal pain, nausea, vomiting, or experiencing any numbness/tingling/weakness/swelling in his extremities. Patient denies any previous nicotine use, alcohol use, or drug use. He reports that he does not have a primary care provider and did not take his morning blood pressure medications. Upon arrival to our facility, patient underwent evaluation in the emergency department. Vital signs upon arrival show blood pressure 166/110, heart rate 101, respiratory rate 18, temp 97.7 F, and SpO2 100% on room air. EKG was completed showing normal sinus rhythm at 96 bpm with prominent Q-wave in inferior leads II, III, and aVF otherwise no noted T wave or ST abnormality showing no signs of acute ischemia on personal review and interpretation. Labs completed and reviewed. CBC unremarkable. BMP showing mild hyponatremia with sodium 132, hypocarbia with bicarb of 20, and slight elevation of renal function with BUN of 19, creatinine 1.30, GFR of 72 which appears to be at patient's baseline. Blood glucose 128. Magnesium was low at 1.6. Liver profile showing elevated total bili of 1.5 otherwise normal findings. Lactic acid was 3.0. Troponin was 0.021 and proBNP less than 20. TSH normal findings at 2.450. Patient was given a 2 L bolus of 0.9% normal saline in the emergency department. CTA chest was completed showing no evidence for pulmonary emboli revealing a right middle lobe 6 mm pulmonary nodule recommending outpatient follow-up in 6 to 12 months to ensure resolution. CT abdomen and pelvis with contrast also completed and was negative for acute process showing colonic diverticulosis. Patient was admitted under our services for cardiac observation with consultation to carton folder. Troponins trended resulting at 0.021, less than 0.012, less than 0.012. Patient had full resolution of chest pain and reports generalized weakness improved. Lactic acidosis resolved after IV fluid bolus. TSH was normal findings at 1.010. Renal artery duplex was obtained showing mild right renal artery stenosis. Echocardiogram completed showing preserved EF of 50 to 55% with mild LVH and mild biatrial enlargement and prominent posterior pericardial stripe. Cardiology evaluated discontinuing nifedipine, losartan, and hydrochlorothiazide and starting patient on amlodipine and losartan. Blood pressures much better controlled. Cardiology recommending outpatient follow-up in their office in 2 weeks. Patient medically optimized for discharge and instructed he needs to establish care with PCP and provided with information on internal medicine [facility] and instructed to schedule first available appointment. Patient to follow-up outpatient with carton folder in 2 weeks and roofer assistant in 2 weeks. Physical exam: Vital signs reviewed and stable. General: Nontoxic, no distress and appears stated age. Derm: Skin warm and dry, normal coloration for ethnicity. Head: Atraumatic, normocephalic and symmetric. Eyes: EOM's intact, no lid lag, and anicteric sclera Mouth: no lip lesions, mucus membranes moist Cardiovascular: regular rate and rhythm with normal S1S2, no murmur, positive posterior tibial pulses bilaterally, and cap refill < 2 seconds. Lungs: Respirations even, regular, and unlabored on room air. Lungs CTA bilaterally, no rhonchi, no rales, no wheezing, and no accessory muscle usage. Abdominal: soft, nontender to palpation, no guarding, no appreciable organomegaly Ext: ROM intact. No gross muscle atrophy, no edema, no contractures Neuro: Speech clear, face symmetrical and CN II-XII grossly intact with no noted focal neuro deficits Psych: Alert and oriented to person, place, time, and situation. Appropriate and pleasant affect. A total of 32 minutes of time were spent preparing this complex discharge adrian flores Pt was discharged on 02/16/25 at 2:38 PM. Patient was seen independently by Nurse Practitioner. This document was prepared using [employer] dictation software. Please allow for errors in fisher while rare they do occur. Reynaldo Candelario NP rendered care for this patient independently, reviewed the findings and plan as documented in the note above. I did not physically speak with or examine the patient on this date. Patient Condition at Discharge: Stable Plan - Discharge Summary New Discharge Prescriptions: New Atorvastatin [Lipitor] 40 mg PO HS 30 Days #30 tab amLODIPine [Norvasc] 5 mg PO BID 30 Days #60 tab Valsartan [Diovan] 160 mg PO BID 30 Days #60 tab Continue Aspirin EC [Ecotrin Low Dose] 81 mg PO DAILY Discontinued hydroCHLOROthiazide [Hydrodiuril] 50 mg PO DAILY #30 tab Losartan [Cozaar] 25 mg PO DAILY #30 tab NIFEdipine XL [Procardia XL] 90 mg PO DAILY #30 tab Discharge Medication List Aspirin EC [Ecotrin Low Dose] 81 mg PO DAILY 02/08/25 [History] Atorvastatin [Lipitor] 40 mg PO HS 30 Days #30 tab 02/16/25 [Rx] Valsartan [Diovan] 160 mg PO BID 30 Days #60 tab 02/16/25 [Rx] amLODIPine [Norvasc] 5 mg PO BID 30 Days #60 tab 02/16/25 [Rx] Follow up Appointment(s)/Referral(s): Aquilino Chris MD [STAFF PHYSICIAN] - 2 Weeks [facility] [NON-STAFF] - 1-2 Days (CALL AND SCHEDULE FOLLOW UP APPOINTMENT PRIOR TO PATIENT'S DISCHARGE) [place] DO [STAFF PHYSICIAN] - 2 Weeks Patient Instructions/Handouts: Hypertension (DC) Activity/Diet/Wound Care/Special Instructions: Activity: As tolerated. Take breaks as needed. Diet: Heart healthy and carb consistent diet. Avoid salts, or foods with hidden salts such as canned or boxed foods and frozen dinners. Extra salt makes your heart w ork harder, body retain water and increases your blood pressure. Special Instructions: Take all of your medications as directed and remember to keep all of your doctor's appointments and follow-up as needed. Monitor your blood pressure twice daily at home and document results in a daily log to bring with you to your next appointment with internal medicine clinic and cardiology office. Thank you for allowing us to participate in your care, it was truly a pleasure having you for our patient!!! Discharge Disposition: HOME SELF-CARE
[2025-02-16] MEDS ORDERED: amLODIPine 10 MG TAB PO SCH (21:00)
[2025-02-17] MEDS ORDERED: PANTOPRAZOLE 40 MG TABLET PO SCH (07:30)
== END 2025-02-16 16:11 | disposition home or self-care (01) ==
LOC: EC 06:56 → 6NMEDSUR 10:38
PROVIDERS: ADMIT Internal Medicine; ATTEND Internal Medicine
DX: R07.89 Other chest pain (principal); I16.0 Hypertensive urgency; I11.9 Hypertensive heart disease without heart failure; E86.0 Dehydration; T46.5X6A Underdosing of other antihypertensive drugs, initial encounter; Z91.128 Patient's intentional underdosing of medication regimen for other reason; I70.1 Atherosclerosis of renal artery; E87.1 Hypo-osmolality and hyponatremia; E87.20 Acidosis, unspecified; E78.5 Hyperlipidemia, unspecified; R79.89 Other specified abnormal findings of blood chemistry; E78.1 Pure hyperglyceridemia; R91.1 Solitary pulmonary nodule; K57.30 Diverticulosis of large intestine without perforation or abscess without bleeding; Z79.82 Long term (current) use of aspirin; Z79.899 Other long term (current) drug therapy; Z11.52 Encounter for screening for COVID-19; Z11.59 Encounter for screening for other viral diseases; Z82.49 Family history of ischemic heart disease and other diseases of the circulatory system
CPT/HCPCS: 96372; 96375 ×2; 96361; 96365; 96366; 99291; 36415; 93005; 93306; 83880; 80053 ×2; 84443 ×2; 83605; 83735 ×2; 84100; 84484; 85025 ×2; 85610; 85730; 81001; 80306; 87636; 93975; 71275; 74177; G0378 ×2; J0360; J1650; J3475; Q9967; J2470

== ENCOUNTER → 2025-03-14 | Outpatient (CLI) | payer OTHER ==
--- NOTE | 2025-03-14 12:01 | CA ---
Stress Echo Report Don Camara Age: 54 Gender: M : 1970 Exam Date: 03/14/2025 11:09 Exam Location: [facility] Ht (in): 73 Wt (lb): 245 Ordering Physician: Shala Cline MD ([id number]) Referring Physician: SHALA CLINE,, Broke Man: Rubina Roberts RDCS Technologist Procedure CPT: Indication: I20.9 ANGINA PECTORIS HTN I10 ICD-9 Codes: Rhythm: Patient History: Chest pain and hypertension Cardiac Medications: Medications in past 24 hours: Contrast: Stress Results Protocol: Kwabena Total dose(mL): Exercise Duration (min:sec): Max ST Depression (mm): Angina Score: Sylvester Score: METS: 8.1 Resting HR: 82 Resting BP: 150 / 85 Peak HR: 189 Peak BP: 212 / 87 Max Predicted HR: 167 113 % Max Predicted HR Target HR: 142 Double Product: [id number] Stress Summary: BP Response: Reason for Termination: Reached target heart rate or work-load Cardiac Symptoms: No symptoms ECG Analysis Resting ECG: Stress ECG: Arrhythmia: Echo Analysis Resting Echo: Peak Echo Analysis: MEASUREMENTS (Male/Female) Normal Values CONCLUSIONS Patient underwent exercise stress echo with a Kwabena protocol treadmill stress test. Patient exercised into Stage 3 for a total of 6 minutes and 48 seconds reaching a total of 8.1 METS. Patient's maximum heart rate was 189 which represented 113% age- predicted maximum heart rate. Stress EKG portion: At baseline patient's EKG showed normal sinus rhythm, normal axis, no significant ST or T wave abnormalities. At peak exercise, EKG showed no significant change from baseline. Stress echo portion: 2-D echocardiogram was performed in the parasternal long, personal short, apical 2 and apical four-chamber views at rest, peak exercise and in recovery. At baseline, echocardiogram showed left ventricular ejection fraction 55% without wall motion abnormalities. With peak exercise, echocardiogram shows improvement in left ventricular ejection fraction, increase contractility, decrease in left ventricular end systolic dimension without wall motion abnormalities consistent with a normal response to exercise. Conclusions: 1. Normal EKG and echo response to exercise without evidence of inducible ischemia. 2. Fair exercise capacity. Dr. Michael Ledesma DO (Electronically Signed) Final Date: 14 March 2025 12:00
== END | disposition home or self-care (01) ==
LOC: RADNMMAIN 10:37
PROVIDERS: ATTEND Internal Medicine Clinical Cardiac Electrophysiology
DX: I10 Essential (primary) hypertension (principal); I20.9 Angina pectoris, unspecified
CPT/HCPCS: 93351